=== PATIENT | female | born 1960 | race Two or more races ===

== ENCOUNTER → 2021-10-01 | Day surgery (SDC) | payer OTHER ==
[~2021-10-01] VITALS: Ht 162.6 cm; Wt 66.7 kg
[~2021-10-01] MED LIST: AMIO200T33 PO; APIX5TAB PO; EPINEPHrine HCL 1 MG/1 ML AMP ONE; HYDROmorphone HCL 2 MG/ML VL IV PRN; HYDROmorphone HCL 2 MG/ML VL ONE; MAGN400T40 OR; MIDAZOLAM HCL 2MG/2ML 2ml VIAL (1mg/ml) ONE; POTA99TA5 PO; PROPOFOL 10 MG/ML 20 ML IV ONE; ROCURONIUM 10MG/ML 10ML VIAL IV ONE; ROPIVACAINE 0.5% (5MG/ML) 20ML AMPULE IJ ONE; ceFAZolin 1GM/50ML 100 ML IV ONE; fentaNYL CITRATE 5 ML ONE
[2021-10-01 16:00] VITALS: BP 125/69
== END | disposition home or self-care (01) ==
LOC: SUR 07:58
PROVIDERS: ATTEND Orthopaedic Surgery
DX: M75.101 Unspecified rotator cuff tear or rupture of right shoulder, not specified as traumatic (principal); M25.811 Other specified joint disorders, right shoulder; M65.811 Other synovitis and tenosynovitis, right shoulder; I20.9 Angina pectoris, unspecified; Z98.890 Other specified postprocedural states; Z79.899 Other long term (current) drug therapy; Z20.822 Contact with and (suspected) exposure to COVID-19
CPT/HCPCS: 29826; 29827; C1713; J0171; J0690; J1170; J2250; J2704; J2795; J3010; U0003; A4565

== ENCOUNTER 2025-03-04 15:44 | Inpatient (IN) | payer OTHER ==
[~2025-03-04] VITALS: Ht 162.6 cm; Wt 62.7 kg
[~2025-03-04 15:44] MED LIST changes: -EPINEPHrine HCL 1 MG/1 ML AMP ONE; -HYDROmorphone HCL 2 MG/ML VL IV PRN; -HYDROmorphone HCL 2 MG/ML VL ONE; -MIDAZOLAM HCL 2MG/2ML 2ml VIAL (1mg/ml) ONE; -PROPOFOL 10 MG/ML 20 ML IV ONE; -ROCURONIUM 10MG/ML 10ML VIAL IV ONE; -ROPIVACAINE 0.5% (5MG/ML) 20ML AMPULE IJ ONE; -ceFAZolin 1GM/50ML 100 ML IV ONE; -fentaNYL CITRATE 5 ML ONE
--- NOTE | 2025-03-04 16:04 | ECG ---
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
--- NOTE | 2025-03-04 16:11 | ED.PDOC ---
History of Present Illness HPI Comments 64 y/o F, with PMHx of urolithiasis presents to the ED for CC of generalized weakness with intermittent burning discomfort from the upper mid chest up to the throat. Patient states, that she has been experiencing symptoms of weakness, numbness, and malaise [id number]. Patient relays, that she was seen at [facility] on 02/21/25 for symptoms and is supposed to followed up for biopsy on the March for neoplasm. No other associated symptoms, modifiers, recent injuries or sick contacts present at this time. Chief Complaint: General Weakness Time Seen by MD: 16:50 Reviewed Notes: Nurses Notes, Medications, Allergies Allergies: Coded Allergies: NO KNOWN ALLERGIES (Unverified , 09/27/21) Home Meds Reported Medications Magnesium Oxide (MAGNESIUM OXIDE) 400 Mg Tab, 400 MG OR, TAB 09/27/21 Potassium Gluconate (Potassium) 595 Mg Tab, 595 MG PO, TAB 09/27/21 Amiodarone Hcl (Amiodarone Hcl) 200 Mg Tab, 200 MG PO BID, TAB 09/27/21 Apixaban Base (ELIQUIS) 5 Mg Tab, 5 MG PO BID, TAB 09/27/21 Information Source: Patient Mode of Arrival: Ambulatory Severity: Moderate Timing: Days Duration: Since onset Prehospital treatment: None Past Medical History PAST MEDICAL HISTORY: Kidney Stones Surgical History (Other): 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 Family History Family History: Unknown Social History Smoker: Non-Smoker Alcohol: Denies ETOH Use Drugs: Denies Drug Use Lives In: Home Constitutional: reports: fatigue, malaise, weakness; denies: chills, diaphoresis, fever, sweats, others EENTM: denies: blurred vision, double vision, ear bleeding, ear discharge, ear drainage, ear pain, ear ringing, eye pain, eye redness, hearing loss, mouth pain, mouth swelling, nasal discharge, nose bleeding, nose congestion, nose pain, photophobia, tearing, throat pain, throat swelling, voice changes, others Respiratory: denies: cough, hemoptysis, orthopnea, SOB at rest, shortness of breath, SOB with excertion, stridor, wheezing, others Cardiovascular: denies: chest pain, dizzy spells, diaphoresis, Dyspnea on exertion, edema, irregular heart beat, left arm pain, lightheadedness, palpitations, PND, syncope, others Gastrointestinal: denies: abdomen distended, abdominal pain, blood streaked bowels, constipated, diarrhea, dysphagia, difficulty swallowing, hematemesis, melena, nausea, poor appetite, poor fluid intake, rectal bleeding, rectal pain, vomiting, others Genitourinary: denies: abnormal vagina bleeding, burning, dyspareunia, dysuria, flank pain, frequency, hematuria, incontinence, pain, , vagina discharge, urgency, others Neurological: reports: numbness; denies: dizziness, fainting, headache, left sided numbness, left sided weakness, paresthesia, pre-existing deficit, right sided numbness, right sided weakness, seizure, speech problems, tingling, tremors, weakness, others Musculoskeletal: denies: back pain, gout, joint pain, joint swelling, muscle pain, muscle stiffness, neck pain, others Integumetry: denies: bruises, change in color, change in hair/nails, dryness, laceration, lesions, lumps, rash, wounds, others Allergic/Immunocompromised: denies: Difficulty Healing, Frequent Infections, Hives, Itching, others Hematologic/Lymphatic: denies: anemia, blood clots, easy bleeding, easy bruising, swollen glands, others Endocrine: denies: excessive hunger, excessive sweating, excessive thirst, excessive urination, flushing, intolerance to cold, intolerance to heat, un explained weight gain, unexplained weight loss, others Psychiatric: denies: anxiety, bipolar disorder, depression, hopeless, panic disorder, schizophrenia, sleepless, suicidal, others All Other Systems: Reviewed and Negative Physical Exam General Appearance: No Apparent Distress, Normal HEENT: Normal ENT Inspection, Pharynx Normal, TMs Normal Neck: Full Range of Motion, Non-Tender, Normal, Normal Inspection Respiratory: Chest Non-Tender, Lungs Clear, No Accessory Muscle Use, No Respiratory Distress, Normal Breath Sounds Cardiovascular: No Edema, No JVD, No Murmur, No Gallop, Normal Peripheral Pu lses, Regular Rate/Rhythm Breast Exam: Deferred Gastrointestinal: No Organomegaly, Non Tender, No Pulsatile Mass, Normal Bowel Sounds, Soft Genitalia: Deferred Pelvic: Deferred Rectal: Deferred Extremities: No calf tenderness, Normal capillary refill, Normal inspection, Normal range of motion, Non-tender, No pedal edema Musculoskeletal : Apperance: Normal Neurologic: Alert, 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 Was a procedure done?: No Differential Dx Considerations may include: hypercalcemia, dehydration, hypoglycemia, failure to thrive, malignancy, acs X-Ray, Labs, Meds, VS Vital Signs Date Time Temp Pulse Resp B/P (MAP) Pulse Ox O2 Delivery O2 Flow Rate FiO2 03/04/25 18:04 97.9 74 16 117/69 (85) 97 97.9 03/04/25 18:04 74 16 97 Room Air 03/04/25 16:02 66 03/04/25 15:55 97.4 73 16 137/83 (101) 94 97.4 Lab Test 03/04/25 18:28 03/04/25 16:17 03/04/25 15:54 Range/Units Urine Color Colorless Yellow Urine Clarity Clear Clear Urine pH 5.5 5.0-9.0 Urine Specific [place] 1.007 1.001-1.035 Urine Protein Negative Negative Urine Ketones Negative Negative Urine Blood Negative Negative /uL Urine Nitrite Negative Negative Urine Bilirubin Negative Negative Urine Urobilinogen Normal Negative mg/dL Urine Leukocyte Esterase 1+ Negative /uL Urine RBC 1 0 - 4 /hpf Urine Microscopic WBC 4 0-5 /HPF Urine Squamous Epithelial Cells None seen <5 /hpf Urine Bacteria None seen None Seen /hpf Urine Glucose Normal Normal mg/dL White Blood Count 5.3 4.4-10.8 10^3/uL Red Blood Count 4.72 4.0-5.20 10^6/uL Hemoglobin 14.6 12.2-16.2 g/dL Hematocrit 41.6 36.0-46.0 % Mean Corpuscular Volume 88.1 80.0-100.0 fL Mean Corpuscular Hemoglobin 30.9 28.0-32.0 pg Mean Corpuscular Hemoglobin Concent 35.0 32.0-36.0 g/dL Red Cell Distribution Width 12.8 11.8-14.3 % Platelet Count 167 140-450 10^3/uL Mean Platelet Volume 7.5 6.9-10.8 fL Neutrophils (%) (Auto) 68.6 37.0-80.0 % Lymphocytes (%) (Auto) 21.6 10.0-50.0 % Monocytes (%) (Auto) 3.9 0.0-12.0 % Eosinophils (%) (Auto) 5.9 0.0-7.0 % Basophils (%) (Auto) 0.0 0.0-2.0 % Neutrophils # (Auto) 3.6 1.6-8.6 10 ^3/uL Lymphocytes # (Auto) 1.1 0.4-5.4 10 ^3/uL Monocytes # (Auto) 0.2 0-1.3 10 ^3/uL Eosinophils # (Auto) 0.3 0-0.8 10 ^3/uL Basophils # (Auto) 0 0-0.2 10 ^3/uL Nucleated Red Blood Cells 0.1 % Sodium Level 140 136-145 mmol/L Potassium Level 4.1 3.5-5.1 mmol/L Chloride Level 102 98-107 mmol/L Carbon Dioxide Level 26 20-31 mmol/L Anion Gap 12 5-15 Blood Urea Nitrogen 17 9-23 mg/dL Creatinine 0.98 0.550-1.02 mg/dL Glomerular Filtration Rate Calc 65 >90 mL/min BUN/Creatinine Ratio 17.3 10.0-20.0 Serum Glucose 106 74-106 mg/dL Calcium Level 10.3 8.7-10.4 mg/dL Magnesium Level 2.3 1.6-2.6 mg/dL Total Bilirubin 0.7 0.2-1.0 mg/dL Aspartate Amino Transferase (AST) 18 13-40 U/L Alanine Aminotransferase (ALT) 20 7-40 U/L Alkaline Phosphatase 67 46-116 U/L Troponin I High Sensitivity 91 *H </=34 ng/L Total Protein 7.4 5.7-8.2 g/dL Albumin 4.9 H 3.2-4.8 g/dL POC Glucose 105 70-106 mg/dl Current Medications Medications (Trade) Dose Ordered Sig/Silvia Route Start Time Stop Time Status Last Admin Aspirin 325 mg ONCE ONCE PO 03/04/25 17:30 03/04/25 17:31 DC 03/04/25 18:[address] [address] Ph: [phone] DIAGNOSTIC IMAGING Diagnostic Imaging Report : [id number] Signed PATIENT: MADDY BEDOYAACCT: [id number] UNIT: [id number] : 1960 LOC: ER ROOM / BED: / AGE / SEX: 64 / F ADM STATUS: REG ER SERVICE 1559 ORDERING PHYSICIAN: BEN DONG MD PROCEDURE(s): CXRP - CHEST PORTABLE REASON: weakness ORDER NUMBER(s): [id number], ACCESSION NUMBER(s): [id number] CHEST RADIOGRAPH Indication: weakness Technique: Single frontal view of the chest was obtained Comparison: None FINDINGS: Left chest dual lead cardiac pacing device The cardiac silhouette is unremarkable. The lungs demonstrate right basilar airspace opacities. The pulmonary vasculature is unremarkable. There is no pleural effusion.. There is no pneumothorax. IMPRESSION: 1. Right basilar airspace opacification. << >> ATED BY: MITRA DE LEON MD DICTATED DATE/TIME: 03/04/251636 SIGNED BY: MITRA DE LEON MD SIGNED DATE/TIME: 03/04/251636 CC: Time of 1ST Reevaluation: 17:20 Reevaluation 1ST: Unchanged Time of 2ND Reevaluation: 18:29 Reevaluation 2ND: Unchanged Patient Education/Counseling: Diagnosis, Treatment, Prognosis, Need For Follow Up Family Education/Counseling: No Family Present Comments The following charts were reviewed from patient's prior visits: 09/21/21 Dx: Sx rotater cuff The following tests were ordered, and results were reviewed by me: CBC, CMP, MAGNESIUM, TROPONIN, EKG, CXR I reviewed and agreed with the following test results read by other providers: CXR I discussed treatment and results with medical personnel and: Patient, Dr Pavon Comprehensive systems review obtained and negative except for what is stated in the HPI. pt has a lung lesion which she is waiting for biopsy next month. in the meantime, pt is progressively feeling weaker. the workup today shows elevated trop. pt may have had a cardiac event. she will be admitted. she may also have the lung lesion assessed while she is here Departure 1 Departure Time of Disposition: 18:31 Impression: Primary Impression: Elevated troponin Additional Impressions: Lesion of lung Unstable angina Disposition: ADMITTED INPATIENT Admit to: Tele Condition: Stable Discharged With: Self Critical Care Note Critical Care Time?: Yes (55 min-critical care time only) Critical care comment: Due to concerns for patients condition deteriorating, the care required my highest level of attention and readiness to intervene. I assessed the patient, reviewed the medical records, ordered the appropriate tests and treatments, then reassessed for results and responsiveness. I communicated with medical personnel and consultants and formulated a plan of care. Total critical care time excludes any procedures Stability Stability form required: No Heart Score Heart Score: Heart Score Response (Comments) Value History N/A 0 EKG N/A 0 Age N/A 0 Risk Factors N/A 0 Troponin N/A 0 Total 0 I personally scribed for BEN DONG MD ([email or web address]) on 03/04/25 at 16:11. Electronically submitted by Florida Meier ([email or web address]). I personally scribed for BEN DONG MD ([email or web address]) on 03/04/25 at 17:13. Electronically submitted by Florida Meier ([email or web address]). BEN DONG MD Mar 04, 2025 16:11
[2025-03-04 16:39] LABS: Basophils # (auto) 0 10 ^3/uL (0-0.2); Eosinophils # (auto) 0.3 10 ^3/uL (0-0.8); Eosinophils % (auto) 5.9 % (0.0-7.0); Hematocrit 41.6 % (36.0-46.0); Hemoglobin 14.6 g/dL (12.2-16.2); Lymphocytes # (auto) 1.1 10 ^3/uL (0.4-5.4); Lymphocytes % (auto) 21.6 % (10.0-50.0); Mean Corpuscular Hemoglobin 30.9 pg (28.0-32.0); Mean Corpuscular Volume 88.1 fL (80.0-100.0); Monocytes # (auto) 0.2 10 ^3/uL (0-1.3); Monocytes % (auto) 3.9 % (0.0-12.0); Neutrophils # (auto) 3.6 10 ^3/uL (1.6-8.6); Neutrophils % (auto) 68.6 % (37.0-80.0); Nucleated Red Blood Cells % 0.1 %; Platelet Count (auto) 167 10^3/uL (140-450); Red Blood Cells 4.72 10^6/uL (4.0-5.20); Red Cell Distribution Width 12.8 % (11.8-14.3); White Blood Cell 5.3 10^3/uL (4.4-10.8)
--- NOTE | 2025-03-04 16:40 | DVH ---
CHEST RADIOGRAPH Indication: weakness Technique: Single frontal view of the chest was obtained Comparison: None FINDINGS: Left chest dual lead cardiac pacing device The cardiac silhouette is unremarkable. The lungs demonstrate right basilar airspace opacities. The p ulmonary vasculature is unremarkable. There is no pleural effusion.. There is no pneumothorax. IMPRESSION: 1. Right basilar airspace opacification. << >>
[2025-03-04 16:58] LABS: Alanine Aminotransferase 20 U/L (7-40); Alkaline Phosphatase 67 U/L (46-116); Anion Gap 12 (5-15); Aspartate Aminotransferase 18 U/L (13-40); BUN/Creatinine Ratio 17.3 (10.0-20.0); Bilirubin, Total 0.7 mg/dL (0.2-1.0); Blood Urea Nitrogen 17 mg/dL (9-23); Calcium 10.3 mg/dL (8.7-10.4); Carbon Dioxide 26 mmol/L (20-31); Chloride 102 mmol/L (98-107); Glucose 106 mg/dL (74-106); Magnesium 2.3 mg/dL (1.6-2.6); Potassium 4.1 mmol/L (3.5-5.1); Sodium 140 mmol/L (136-145); Total Protein 7.4 g/dL (5.7-8.2)
[2025-03-04 17:05] LABS: Albumin 4.9 g/dL (3.2-4.8)
[2025-03-04] MEDS: ASPirin 325 MG TAB PO ONE (18:07)
[2025-03-04 18:42] LABS: Urine Bacteria None Seen /hpf (None Seen)
[2025-03-04 18:56] LABS: Urine Blood Negative /uL (Negative); Urine Clarity Clear (Clear); Urine Color Colorless (Yellow); Urine Protein, UAD Negative (Negative); Urine Specific Gravity 1.007 (1.001-1.035); Urine Squamous Epithelial Cell None Seen /hpf (<5); Urine Urobilinogen Normal (Negative); Urine WBC 4 /HPF (0-5); Urine pH 5.5 (5.0-9.0)
[2025-03-04] MEDS ORDERED: NITROGLYCERIN 0.4 MG SL TAB SL PRN (21:45)
[2025-03-04] MEDS ORDERED: MORPHINE SULFATE INJ 2 MG/ml SYRG IV PRN (21:45)
[2025-03-04] MEDS: ENOXAPARIN SOD 60 MG/0.6 ML SYRINGE SC SCH (21:56)
[2025-03-04 22:01] VITALS: PULSE 61; RESP 18; O2SAT 98
[2025-03-04] MEDS: SOD CHL 0.45% 1,000 ML IV ONE (22:17)
[2025-03-04 22:41] LABS: INR 1.02 (0.9-1.15); Prothrombin Time 10.8 sec (9.3-11.8)
[2025-03-05] VITALS (7 sets, daily range): BP systolic 104–115; BP diastolic 56–68; PULSE 60–96; RESP 16–20; TEMP 97.3–98.3; O2SAT 97–99
[2025-03-05 07:48] LABS: Basophils # (auto) 0 10 ^3/uL (0-0.2); Basophils % (auto) 0.6 % (0.0-2.0); Eosinophils # (auto) 0.1 10 ^3/uL (0-0.8); Eosinophils % (auto) 1.4 % (0.0-7.0); Hematocrit 40.3 % (36.0-46.0); Hemoglobin 14.1 g/dL (12.2-16.2); Lymphocytes % (auto) 42.3 % (10.0-50.0); Mean Corpuscular Hemoglobin 30.7 pg (28.0-32.0); Mean Corpuscular Hgb Conc. 34.9 g/dL (32.0-36.0); Mean Corpuscular Volume 88.1 fL (80.0-100.0); Monocytes # (auto) 0.3 10 ^3/uL (0-1.3); Neutrophils # (auto) 2.4 10 ^3/uL (1.6-8.6); Neutrophils % (auto) 49.7 % (37.0-80.0); Nucleated Red Blood Cells % 0.1 %; Platelet Count (auto) 149 10^3/uL (140-450); Red Blood Cells 4.58 10^6/uL (4.0-5.20); Red Cell Distribution Width 12.8 % (11.8-14.3); White Blood Cell 4.8 10^3/uL (4.4-10.8)
[2025-03-05 08:06] LABS: Alanine Aminotransferase 14 U/L (7-40); Albumin 4.5 g/dL (3.2-4.8); Alkaline Phosphatase 60 U/L (46-116); Anion Gap 8 (5-15); Aspartate Aminotransferase 17 U/L (13-40); BUN/Creatinine Ratio 21.4 (10.0-20.0); Blood Urea Nitrogen 18 mg/dL (9-23); Calcium 9.6 mg/dL (8.7-10.4); Carbon Dioxide 24 mmol/L (20-31); Chloride 106 mmol/L (98-107); Glucose 90 mg/dL (74-106); Sodium 138 mmol/L (136-145)
[2025-03-05 08:07] LABS: Bilirubin, Total 0.9 mg/dL (0.2-1.0)
[2025-03-05] MEDS ORDERED: IOHEXOL 350 MG/ML 100ML IJ ONE (12:26)
--- NOTE | 2025-03-05 12:32 | DVHINCON2 ---
Date Seen: Mar 05, [address] Dainelle Reason for Consultation Elevated troponin History of Present Illness This 64-year-old female mainly Lithuanian-speaking presents in the ED with a chief complaint of generalized weakness. In the emergency department, the patient is found to have mild troponins 91/98/94 for which licensed sales assistant consulted. The patient underwent a 12 lead ECG revealing AV paced. Upon assessment, the patient states generalized weakness associated with intermittent mid chest and through discomfort and malaise for the past three weeks. The patient reports history of AFib on amiodarone and Eliquis, status post permanent pacemaker with a dual-chamber. She had seen her licensed sales assistant Dr. Chakraborty two months ago for regular checkup. Denies history of OR or CAD. 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 Past Medical History As stated in HPI Past Surgical History Denies Family History: Patient reports no known family medical history. Family History Reviewed, non-contributory to the management of this case. Social History The patient lives at home, denies smoking, alcohol or illicit drugs abuse. Allergies: Coded Allergies: NO KNOWN ALLERGIES (Unverified , 09/27/21) Home Meds Reported Medications Magnesium Oxide (MAGNESIUM OXIDE) 400 Mg Tab, 400 MG OR, TAB 09/27/21 Apixaban Base (ELIQUIS) 5 Mg Tab, 5 MG PO BID, TAB 09/27/21 Current Medications Current Medications Medications (Trade) Dose Ordered Sig/Silvia Route PRN Reason Start Time Stop Time Status Last Admin Nitroglycerin (Ntrostat Sublingual) 0.4 mg Q5MINP PRN SL FOR CHEST PAIN 03/04/25 21:45 Morphine Sulfate 2 mg Q30M PRN IV FOR CHEST PAIN 03/04/25 21:45 Enoxaparin Sodium (Lovenox) 60 mg BID SC 03/04/25 22:00 03/04/25 21:56 Review of Systems Constitutional: Malaise, generalized weakness Ears, Nose, & Throat: No symptom reported Eyes: No symptom reported Neurological: No symptoms reported Pulmonary/Respiratory: No symptom reported Cardiovascular: No symptom reported Gastrointestinal: No symptom reported Genitourinary: No symptom reported Musculoskeletal: No symptom reported Skin: No symptom reported Psychiatric: No symptom reported Endocrine: No symptom reported Hematologic/Lymphatic: No symptom reported Vital Signs Vital Signs Date Time Temp Pulse Resp B/P (MAP) Pulse Ox O2 Delivery O2 Flow Rate FiO2 03/05/25 05:00 97.6 61 20 107/68 (81) 97 97.6 03/04/25 22:01 Room Air* 0 21 Physical Exam INITIAL VITAL SIGNS: Reviewed by me GENERAL: Alert and interactive. No acute distress. HEAD: Head is normocephalic and atraumatic. EYES: EOMI, PERRL. No scleral icterus. No conjunctival injection. ENT: Moist mucous membranes. NECK: Supple, No masses, Full range of motion. RESPIRATORY: No tachypnea. Clear breath sounds bilaterally. No wheezing, rales, rhonchi. CV: AV paced. No dyspnea, no shortness of breath, no edema GI/: Active bowel sounds, soft, nondistended, nontender. No guarding. No rebound. No masses. No CVA tenderness. INTEGUMENTARY: Warm and dry. No obvious rashes. NEUROLOGIC: Alert and oriented. Face is symmetric. Speech is normal. Moves all extremities equally. Labs/Diagnostic Data Labs Test 03/05/25 07:32 03/04/25 21:57 03/04/25 18:28 03/04/25 16:17 Range/Units White Blood Count 4.8 4.4-10.8 10^3/uL Red Blood Count 4.58 4.0-5.20 10^6/uL Hemoglobin 14.1 12.2-16.2 g/dL Hematocrit 40.3 36.0-46.0 % Mean Corpuscular Volume 88.1 80.0-100.0 fL Mean Corpuscular Hemoglobin 30.7 28.0-32.0 pg Mean Corpuscular Hemoglobin Concent 34.9 32.0-36.0 g/dL Red Cell Distribution Width 12.8 11.8-14.3 % Platelet Count 149 140-450 10^3/uL Mean Platelet Volume 7.6 6.9-10.8 fL Neutrophils (%) (Auto) 49.7 37.0-80.0 % Lymphocytes (%) (Auto) 42.3 10.0-50.0 % Monocytes (%) (Auto) 6.0 0.0-12.0 % Eosinophils (%) (Auto) 1.4 0.0-7.0 % Basophils (%) (Auto) 0.6 0.0-2.0 % Neutrophils # (Auto) 2.4 1.6-8.6 10 ^3/uL Lymphocytes # (Auto) 2.0 0.4-5.4 10 ^3/uL Monocytes # (Auto) 0.3 0-1.3 10 ^3/uL Eosinophils # (Auto) 0.1 0-0.8 10 ^3/uL Basophils # (Auto) 0 0-0.2 10 ^3/uL Nucleated Red Blood Cells 0.1 % Sodium Level 138 136-145 mmol/L Potassium Level 4.0 3.5-5.1 mmol/L Chloride Level 106 98-107 mmol/L Carbon Dioxide Level 24 20-31 mmol/L Anion Gap 8 5-15 Blood Urea Nitrogen 18 9-23 mg/dL Creatinine 0.84 0.550-1.02 mg/dL Glomerular Filtration Rate Calc 79 >90 mL/min BUN/Creatinine Ratio 21.4 H 10.0-20.0 Serum Glucose 90 74-106 mg/dL Calcium Level 9.6 8.7-10.4 mg/dL Total Bilirubin 0.9 0.2-1.0 mg/dL Aspartate Amino Transferase (AST) 17 13-40 U/L Alanine Aminotransferase (ALT) 14 7-40 U/L Alkaline Phosphatase 60 46-116 U/L Troponin I High Sensitivity 94 *H </=34 ng/L Total Protein 7.0 5.7-8.2 g/dL Albumin 4.5 3.2-4.8 g/dL Prothrombin Time 10.8 9.3-11.8 sec Prothrombin Time INR 1.02 0.9-1.15 Urine Color Colorless Yellow Urine Clarity Clear Clear Urine pH 5.5 5.0-9.0 Urine Specific [place] 1.007 1.001-1.035 Urine Protein Negative Negative Urine Ketones Negative Negative Urine Blood Negative Negative /uL Urine Nitrite Negative Negative Urine Bilirubin Negative Negative Urine Urobilinogen Normal Negative mg/dL Urine Leukocyte Esterase 1+ Negative /uL Urine RBC 1 0 - 4 /hpf Urine Microscopic WBC 4 0-5 /HPF Urine Squamous Epithelial Cells None seen <5 /hpf Urine Bacteria None seen None Seen /hpf Urine Glucose Normal Normal mg/dL Magnesium Level 2.3 1.6-2.6 mg/dL Test 03/04/25 15:54 Range/Units POC Glucose 105 70-106 mg/dl PROCEDURE(s): CXRP - CHEST PORTABLE REASON: weakness ORDER NUMBER(s): [id number], ACCESSION NUMBER(s): [id number] CHEST RADIOGRAPH Indication: weakness Technique: Single frontal view of the chest was obtained Comparison: None FINDINGS: Left chest dual lead cardiac pacing device The cardiac silhouette is unremarkable. The lungs demonstrate right basilar airspace opacities. The pulmonary vasculature is unremarkable. There is no pleural effusion.. There is no pneumothorax. IMPRESSION: 1. Right basilar airspace opacification. << >> Assessment NSTEMI likely noncardiac Hx of AFib on amiodarone and Eliquis Presence of permanent pacemaker Generalized weakness Lung nodule pending biopsy Plan/Recommendation (Dr. Maciel): * Echocardiogram to evaluate cardiac function * Trend troponin, monitor 12 lead ECG and telemetry * Pacemaker interrogation * Check lipid panel, TSH and A1c * Monitor for chest pain Elevated troponin likely noncardiac given unremarkable EKG, downtrending troponin, denies chest pain or shortness of breath. Likely 2/2 ? Lung nodule?neoplasm. In the setting of unremarkable echocardiogram and and pacemaker interrogation, we will sign off. Follow-up with the Cardiology Dr. Chakraborty in outpatient setting This medical document was created using an electronic medical record system with voice recognition software and computerized dictation system. Although this document has been carefully reviewed, there might still be some phonetic and typographical errors. Occasional wrong-word or ``sound-alike substitutions may have occurred due to the inherent limitations of voice recognition software. These areas are purely typographical due to imperfections of the software programs and do not reflect any compromise in the patient's medical care. Please read the chart carefully and recognize, using context, where these substitutions have occurred. Plan discussed with: Patient Plan discussed with: Patient NYHA Physical activity limitations: NA Date of Service: Mar 05, 2025 Billing Provider: GRIS MACIEL MD Cardiology Common Codes: CONSULT ONLY Cardiology Consultation Codes: 96988-[id number] CONSULT <45MIN LIZET TARIQ BOOK CLEANER Mar 05, 2025 12:32
[2025-03-05 12:44] LABS: Triglycerides 95 mg/dL (< 150)
[2025-03-05 12:45] LABS: LDL Cholesterol 135 mg/dL (< 100)
[2025-03-05 12:46] LABS: Cholesterol 217 mg/dL (< 200); HDL Cholesterol 63 mg/dL (40-59)
--- NOTE | 2025-03-05 13:49 | DVHSR ---
APPROVED REPORT EXAM: Two-dimensional and M-mode echocardiogram with Doppler and color Doppler. Blood Pressure: 107/68 mmHg INDICATION NSTEMI Surgery/Intervention Pacemaker: RISK FACTORS Height: 64, Weight: 137 DIMENSIONS LVDd4.5 (3.8-5.7cm)LA (2D)3.6 (1.9-4.0cm)Aortic Root2.8 (2.0-3.7cm) LVDs2.7 (2.5-4.0cm)LA (MM) (1.9-4.0cm)Aortic Cusp Exc1.6 (1.5-2.0cm) EF (%) 69.0 (55-70%)Rt. Atrium3.3 (1.9-4.0cm)Asc. Aorta cm IVSd0.8 (0.7-1.1cm)RV (D) (1.8-2.4cm) PWd1.0 (0.7-1.1cm) Mitral Valve MitralMitral Stenosis E wave0.80m/sMV Mean GR.mmHg A wave0.86m/sMV Peak GR.mmHg E/A ratio0.92D MVAcm2 DECEL [id number] 1/2 [id number] IVRTmsDop MVA2.69cm2 Aortic Valve Aortic ValveAortic Stenosis V11.03m/Shelly Mean GR.6mmHg V21.61m/Shelly Peak GR.10mmHg LVOT Diameter1.9 (1.8-2.4cm)Doppler AVA1.81cm2 AI P 1/2 Aakn915.40ms Pulmonic Valve V20.87m/s Tricuspid Valve TR Velocity2.43m/s [id number] Conclusion LV EF IS 65% NORMAL VALVES NORMAL RV FUNCTION AND SIZE NO EFFUSION NORMAL RVSP
--- NOTE | 2025-03-05 15:22 | DVH ---
Exam: CT CT CHEST/AB/PL W CON- IV ONLY History: Reported lung mass, pending Bx, also review for mets Comparison Study: None available at time of dictation. Technique: Multidetector CT of the chest, abdomen and pelvis was performed from lower neck to pubic s ymphysis. Intravenous contrast was administered during this examination. Axial, coronal and sagittal multiplanar reformats were performed by the technologist on a separate workstation. Radiation Dose Information: CT Dose: CTDI volume is 11.51 mGy. Dose-length product is 804.26 mGy*cm Omnipaque 300:1 100 mL Findings: Lower neck: Normal thyroid no adenopathy Lungs: 2.1 cm spiculated soft tissue nodule left upper lung field. Heart/Vascular Structures: Within normal limits Lymph Nodes: No adenopathy Pleura: No pleural thickening or pleural effusions Liver: The liver is normal in size. No focal lesions. Normal hepatic vascular enhancement. Hepatic s teatosis. No masses or nodules. Gallbladder and Biliary Tree: Cholelithiasis Spleen: Unremarkable Pancreas: The pancreas is normal in appearance without focal lesions or abnormal enhancement. Adrenal Glands: Unremarkable Kidneys: Kidneys demonstrate normal symmetric enhancement without focal lesions, calculi or hydroneph rosis. Bladder: Unremarkable Bowel: The stomach is grossly normal in appearance. Small bowel and colon are normal in caliber and d istribution. The appendix is not visualized; however, no secondary findings of acute appendicitis id entified. Ascites: Absent Lymphadenopathy: No mesenteric, retroperitoneal or periportal lymphadenopathy. Abdominal Wall and Mesentery: Unremarkable. Vasculature: The visualized abdominal aorta is normal in size and caliber. Abdominal and pelvic vess els demonstrate normal enhancement. Pelvic Organs: Unremarkable Musculoskeletal: No aggressive focal bony lesions, acute fractures or dislocation. IMPRESSION: 1. 2.1 cm solid soft tissue nodule left apex. 2. No other pulmonary nodules or masses 3. Steatosis of the liver no hepatic nodules or masses 4. No osseous lytic or blastic lesions. All CT scans at this medical facility are performed using dose modulation techniques as appropriate t o a performed exam including the following: Automated exposure control was utilized; adjustment of th e MA and/or KV according to patient size; and use of iterative reconstruction technique.
--- NOTE | 2025-03-05 21:02 | DVHINCON2 ---
Date Seen: Mar 05, [address] 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 In the emergency department, the patient is found to have mild troponins 91/98/94 for which ship pilot dispatcher consulted. The patient underwent a 12 lead ECG revealing AV paced. Upon assessment, the patient states generalized weakness associated with intermittent mid chest and through discomfort and malaise for the past three weeks. She had seen her ship pilot dispatcher Dr. Chakraborty two months ago for regular checkup. Denies history of NH or CAD. Chest x-ray shows right basilar airspace opacification. Patient was admitted to the hospital. I am asked to consult on this patient. Family History: Patient reports no known family medical history. Allergies: Coded Allergies: NO KNOWN ALLERGIES (Unverified , 09/27/21) Home Meds Reported Medications Magnesium Oxide (MAGNESIUM OXIDE) 400 Mg Tab, 400 MG OR, TAB 09/27/21 Apixaban Base (ELIQUIS) 5 Mg Tab, 5 MG PO BID, TAB 09/27/21 Current Medications Current Medications Medications (Trade) Dose Ordered Sig/Silvia Route PRN Reason Start Time Stop Time Status Last Admin Nitroglycerin (Ntrostat Sublingual) 0.4 mg Q5MINP PRN SL FOR CHEST PAIN 03/04/25 21:45 Morphine Sulfate 2 mg Q30M PRN IV FOR CHEST PAIN 03/04/25 21:45 Enoxaparin Sodium (Lovenox) 60 mg BID SC 03/04/25 22:00 03/04/25 21:56 Review of Systems Constitutional: Malaise, generalized weakness Ears, Nose, & Throat: No symptom reported Eyes: No symptom reported Neurological: No symptoms reported Pulmonary/Respiratory: No symptom reported Cardiovascular: No symptom reported Gastrointestinal: No symptom reported Genitourinary: No symptom reported Musculoskeletal: No symptom reported Skin: No symptom reported Psychiatric: No symptom reported Endocrine: No symptom reported Hematologic/Lymphatic: No symptom reported Vital Signs Vital Signs Date Time Temp Pulse Resp B/P (MAP) Pulse Ox O2 Delivery O2 Flow Rate FiO2 03/05/25 05:00 97.6 61 20 107/68 (81) 97 97.6 03/04/25 22:01 Room Air* 0 21 Physical Exam GENERAL: Alert and oriented x 3. No acute distress. EYES: PERRL, EOMI. Anicteric. HENT: Moist mucous membranes. LUNGS: Clear to auscultation bilaterally. CARDIOVASCULAR: Regular rate and rhythm. ABDOMEN: Soft, nontender and nondistended. EXTREMITIES: No edema. NEUROLOGIC: No focal neurological deficits. SKIN: Warm, dry. Labs/Diagnostic Data Labs Test 03/05/25 07:32 03/04/25 21:57 03/04/25 18:28 03/04/25 16:17 Range/Units White Blood Count 4.8 4.4-10.8 10^3/uL Red Blood Count 4.58 4.0-5.20 10^6/uL Hemoglobin 14.1 12.2-16.2 g/dL Hematocrit 40.3 36.0-46.0 % Mean Corpuscular Volume 88.1 80.0-100.0 fL Mean Corpuscular Hemoglobin 30.7 28.0-32.0 pg Mean Corpuscular Hemoglobin Concent 34.9 32.0-36.0 g/dL Red Cell Distribution Width 12.8 11.8-14.3 % Platelet Count 149 140-450 10^3/uL Mean Platelet Volume 7.6 6.9-10.8 fL Neutrophils (%) (Auto) 49.7 37.0-80.0 % Lymphocytes (%) (Auto) 42.3 10.0-50.0 % Monocytes (%) (Auto) 6.0 0.0-12.0 % Eosinophils (%) (Auto) 1.4 0.0-7.0 % Basophils (%) (Auto) 0.6 0.0-2.0 % Neutrophils # (Auto) 2.4 1.6-8.6 10 ^3/uL Lymphocytes # (Auto) 2.0 0.4-5.4 10 ^3/uL Monocytes # (Auto) 0.3 0-1.3 10 ^3/uL Eosinophils # (Auto) 0.1 0-0.8 10 ^3/uL Basophils # (Auto) 0 0-0.2 10 ^3/uL Nucleated Red Blood Cells 0.1 % Sodium Level 138 136-145 mmol/L Potassium Level 4.0 3.5-5.1 mmol/L Chloride Level 106 98-107 mmol/L Carbon Dioxide Level 24 20-31 mmol/L Anion Gap 8 5-15 Blood Urea Nitrogen 18 9-23 mg/dL Creatinine 0.84 0.550-1.02 mg/dL Glomerular Filtration Rate Calc 79 >90 mL/min BUN/Creatinine Ratio 21.4 H 10.0-20.0 Serum Glucose 90 74-106 mg/dL Hemoglobin A1c 5.0 <5.7 % A1C Calcium Level 9.6 8.7-10.4 mg/dL Total Bilirubin 0.9 0.2-1.0 mg/dL Aspartate Amino Transferase (AST) 17 13-40 U/L Alanine Aminotransferase (ALT) 14 7-40 U/L Alkaline Phosphatase 60 46-116 U/L Troponin I High Sensitivity 94 *H </=34 ng/L B-Type Natriuretic Peptide 40.63 0-100 pg/mL Total Protein 7.0 5.7-8.2 g/dL Albumin 4.5 3.2-4.8 g/dL Triglycerides Level 95 < 150 mg/dL Cholesterol Level 217 H < 200 mg/dL LDL Cholesterol 135 H < 100 mg/dL HDL Cholesterol 63 H 40-59 mg/dL Thyroid Stimulating Hormone (TSH) 1.62 0.55-4.78 uIU/mL Prothrombin Time 10.8 9.3-11.8 sec Prothrombin Time INR 1.02 0.9-1.15 Urine Color Colorless Yellow Urine Clarity Clear Clear Urine pH 5.5 5.0-9.0 Urine Specific [place] 1.007 1.001-1.035 Urine Protein Negative Negative Urine Ketones Negative Negative Urine Blood Negative Negative /uL Urine Nitrite Negative Negative Urine Bilirubin Negative Negative Urine Urobilinogen Normal Negative mg/dL Urine Leukocyte Esterase 1+ Negative /uL Urine RBC 1 0 - 4 /hpf Urine Microscopic WBC 4 0-5 /HPF Urine Squamous Epithelial Cells None seen <5 /hpf Urine Bacteria None seen None Seen /hpf Urine Glucose Normal Normal mg/dL Magnesium Level 2.3 1.6-2.6 mg/dL Test 03/04/25 15:54 Range/Units POC Glucose 105 70-106 mg/dl Assessment NSTEMI likely noncardiac. History of AFib on amiodarone and Eliquis. Presence of permanent pacemaker. Generalized weakness. Lung nodule pending biopsy. Plan/Recommendation I agree with your ongoing assessment and care of plan. Patient has been seen by Sussy Hua NP on my behalf, her and I discussed the plan with the patient. Echocardiogram to evaluate cardiac function.. Trend troponin, monitor 12 lead ECG and telemetry. Pacemaker interrogation. Check lipid panel, TSH and A1c. Monitor for chest pain. Elevated troponin likely noncardiac given unremarkable EKG, downtrending troponin, denies chest pain or shortness of breath. Likely 2/2 ? Lung nodule?neoplasm. Follow-up with the Cardiology Dr. Chakraborty in outpatient setting Additional plan as per the hospital course. Plan discussed with: Patient NYHA Physical activity limitations: NA Date of Service: Mar 05, 2025 Billing Provider: GRIS TERRY MD Cardiology Common Codes: 14306-LJFAAVR INP/OBS CARE (High) Cardiology Consultation Codes: 03439-[id number] CONSULT <45MIN GRIS TERRY MD Mar 05, 2025 14:03
--- NOTE | 2025-03-05 21:53 | DVHHP2 ---
Admitting Diagnosis: Elevated troponin History of Present Illness HPI 64 y.o. 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 Her troponin was elevated 91 and the second time 98. EKG has no acute changes. Home Meds Reported Medications Magnesium Oxide (MAGNESIUM OXIDE) 400 Mg Tab, 400 MG OR, TAB 09/27/21 Apixaban Base (ELIQUIS) 5 Mg Tab, 5 MG PO BID, TAB 09/27/21 Past Medical History Cardiac: Other (AICD) Patient Family History: Patient reports no known family medical history. Review of Systems Constitutional: Weakness Cardiovascular: Chest Pain H&P Exam Vital Signs Vital Signs Date Time Temp Pulse Resp B/P (MAP) Pulse Ox O2 Delivery O2 Flow Rate FiO2 03/05/25 19:49 98.1 60 18 108/56 (73) 99 98.1 03/04/25 22:01 Room Air* 0 21 General Appeara: Well developed Head Exam: Normal inspection Eye Exam: bilateral eye PERRL, bilateral eye EOMI Pulmonary/Respiratory: Crackles Cardiovascular/Chest: Regular rate Abdominal Exam: Normal bowel sounds Neuro/Mental St: Alert, Oriented Labs/Xrays Labs Test 03/05/25 07:32 03/04/25 21:57 03/04/25 18:28 03/04/25 16:17 Range/Units White Blood Count 4.8 4.4-10.8 10^3/uL Red Blood Count 4.58 4.0-5.20 10^6/uL Hemoglobin 14.1 12.2-16.2 g/dL Hematocrit 40.3 36.0-46.0 % Mean Corpuscular Volume 88.1 80.0-100.0 fL Mean Corpuscular Hemoglobin 30.7 28.0-32.0 pg Mean Corpuscular Hemoglobin Concent 34.9 32.0-36.0 g/dL Red Cell Distribution Width 12.8 11.8-14.3 % Platelet Count 149 140-450 10^3/uL Mean Platelet Volume 7.6 6.9-10.8 fL Neutrophils (%) (Auto) 49.7 37.0-80.0 % Lymphocytes (%) (Auto) 42.3 10.0-50.0 % Monocytes (%) (Auto) 6.0 0.0-12.0 % Eosinophils (%) (Auto) 1.4 0.0-7.0 % Basophils (%) (Auto) 0.6 0.0-2.0 % Neutrophils # (Auto) 2.4 1.6-8.6 10 ^3/uL Lymphocytes # (Auto) 2.0 0.4-5.4 10 ^3/uL Monocytes # (Auto) 0.3 0-1.3 10 ^3/uL Eosinophils # (Auto) 0.1 0-0.8 10 ^3/uL Basophils # (Auto) 0 0-0.2 10 ^3/uL Nucleated Red Blood Cells 0.1 % Sodium Level 138 136-145 mmol/L Potassium Level 4.0 3.5-5.1 mmol/L Chloride Level 106 98-107 mmol/L Carbon Dioxide Level 24 20-31 mmol/L Anion Gap 8 5-15 Blood Urea Nitrogen 18 9-23 mg/dL Creatinine 0.84 0.550-1.02 mg/dL Glomerular Filtration Rate Calc 79 >90 mL/min BUN/Creatinine Ratio 21.4 H 10.0-20.0 Serum Glucose 90 74-106 mg/dL Hemoglobin A1c 5.0 <5.7 % A1C Calcium Level 9.6 8.7-10.4 mg/dL Total Bilirubin 0.9 0.2-1.0 mg/dL Aspartate Amino Transferase (AST) 17 13-40 U/L Alanine Aminotransferase (ALT) 14 7-40 U/L Alkaline Phosphatase 60 46-116 U/L Troponin I High Sensitivity 94 *H </=34 ng/L B-Type Natriuretic Peptide 40.63 0-100 pg/mL Total Protein 7.0 5.7-8.2 g/dL Albumin 4.5 3.2-4.8 g/dL Triglycerides Level 95 < 150 mg/dL Cholesterol Level 217 H < 200 mg/dL LDL Cholesterol 135 H < 100 mg/dL HDL Cholesterol 63 H 40-59 mg/dL Thyroid Stimulating Hormone (TSH) 1.62 0.55-4.78 uIU/mL Prothrombin Time 10.8 9.3-11.8 sec Prothrombin Time INR 1.02 0.9-1.15 Urine Color Colorless Yellow Urine Clarity Clear Clear Urine pH 5.5 5.0-9.0 Urine Specific [place] 1.007 1.001-1.035 Urine Protein Negative Negative Urine Ketones Negative Negative Urine Blood Negative Negative /uL Urine Nitrite Negative Negative Urine Bilirubin Negative Negative Urine Urobilinogen Normal Negative mg/dL Urine Leukocyte Esterase 1+ Negative /uL Urine RBC 1 0 - 4 /hpf Urine Microscopic WBC 4 0-5 /HPF Urine Squamous Epithelial Cells None seen <5 /hpf Urine Bacteria None seen None Seen /hpf Urine Glucose Normal Normal mg/dL Magnesium Level 2.3 1.6-2.6 mg/dL Test 03/04/25 15:54 Range/Units POC Glucose 105 70-106 mg/dl Assessment/Plan Problem List: (1) Chest pain (2) Elevated troponin (3) Lesion of lung Plan ECHO, cardiology consult Plan discussed with: Patient JAVED OCAMPO MD Mar 05, 2025 21:53
[2025-03-06] VITALS (7 sets, daily range): BP systolic 104–110; BP diastolic 65–73; PULSE 60–66; RESP 16–19; TEMP 97.9–98.8; O2SAT 97–98
--- NOTE | 2025-03-06 14:46 | DVHPN2 ---
Progress Note - Dictate Date Seen: Mar 06, 2025 Medical Necessity Reason Pt with a Central, PICC or Fol: No Subjective Patient continues to note chest pain on deep inspiration. vital signs Vital Sign Date Time Temp Pulse Resp B/P (MAP) Pulse Ox O2 Delivery O2 Flow Rate FiO2 03/06/25 13:00 97.9 66 19 110/70 (83) 97 97.9 03/06/25 08:00 Room Air* 0 21 Total Intake and Output 03/05/25 03/05/25 03/06/25 15:00 23:00 07:00 Intake Total 850 ml 0 ml Output Total 850 ml Balance 0 ml 0 ml medications Current Medications Medications Dose Ordered Sig/Silvia Route Start Time Stop Time Status Last Admin Dose Admin Nitroglycerin 0.4 mg Q5MINP PRN SL 03/04/25 21:45 Morphine Sulfate 2 mg Q30M PRN IV 03/04/25 21:45 Enoxaparin Sodium 60 mg BID SC 03/04/25 22:00 03/04/25 21:56 60 MG objective General appearance: No acute distress Respiratory: Lungs clear to auscultation. No wheezing, crackles Cardiovascular: Regular rate and rhythm, no murmurs. No edema Abdomen: Soft, nondistended, nontender, bowel sounds present MSK: Normal range of motion. Neuro: Alert, no neurological deficits Psych: Appropriate mood and affect. laboratory and microbiology Laboratory Tests 03/05/25 07:32 Test 03/05/25 07:32 Range/Units Serum Glucose 90 74-106 mg/dL Problem List 1. Chest Pain 2. 2.1 cm soft tissue nodule in the left apex 3. Hepatic Steatosis Assessment/Plan -Cardiology consulted for elevated troponins -TTE wnl without valve abnormalities or signs of CHF - IR consulted for lung mass biopsy. Plan for 03/07 due to scheduling. -Hold home eliquis at this time -NPO at midnight -Full Code Plan discussed with: Patient HALLE RICO DO Mar 06, 2025 14:46
--- NOTE | 2025-03-06 16:18 | DVHINCON2 ---
Date of service: Mar 05, [address] Danielle Reason for Consultation Left upper lobe spiculated lung nodule History of Present Illness A 64-year-old woman with past medical history of AFib, on amiodarone and Eliquis, status post PPM, questionable neoplasm of left upper lung who presents to ED on 03/04/25 with c/o generalized weakness. Patient reported generalized weakness associated with intermittent mid chest and throat discomfort and malaise for the past 3 weeks. She had seen her shield runner Dr. Chakraborty 2 months ago for regular checkup. Denied history of NC or CAD. In the ED, patient was found to have mild troponin elevation, 91/98/94. Patient underwent a 12 lead ECG revealing AV paced. Chest x-ray showed right basilar airspace opacification. Patient was admitted for further care and pulmonary consultation is requested for evaluation and management due to the above findings. Review of Systems: 14-point review of systems negative unless otherwise noted above. Past Medical History: AFib, on amiodarone and Eliquis, status post PPM, questionable neoplasm of left upper lung. Past Surgical History: Status post PPM, dual chamber. Medications: Reviewed. Allergies: No known drug allergies. Family History: No family history of premature CAD. No family history of lung disorders. Social History: Nonsmoker. No alcohol or illicit drug use. Family History: Patient reports no known family medical history. Allergies: Coded Allergies: NO KNOWN ALLERGIES (Unverified , 09/27/21) Home Meds Reported Medications Magnesium Oxide (MAGNESIUM OXIDE) 400 Mg Tab, 400 MG OR, TAB 09/27/21 Apixaban Base (ELIQUIS) 5 Mg Tab, 5 MG PO BID, TAB 09/27/21 Vital Signs Vital Signs Date Time Temp Pulse Resp B/P (MAP) Pulse Ox O2 Delivery O2 Flow Rate FiO2 03/06/25 13:00 97.9 66 19 110/70 (83) 97 97.9 03/06/25 08:00 Room Air* 0 21 Physical Exam Gen.: Patient lying in bed in no apparent distress. Breathing on room air. Head: Normocephalic, atraumatic. Eyes: EOMI/PERRLA. Ears: Normal hearing. Normal anatomy. Neck/trachea: Trachea midline, supple. Nose: Normal external anatomy. Mouth: Moist mucous membranes. Chest: Decreased air entry bilaterally. No wheezing or rhonchi. Cardiovascular: Positive S1, positive S2. Regular rate and rhythm. Abdomen: Positive bowel sounds in all 4 quadrants. Soft, non-tender, non- distended. : Deferred. Rectal: Deferred. Skin: Warm, dry. Intact. Extremities: 2+ radial pulses bilaterally. No lower extremity edema. Neuro: Awake, alert, oriented x3. No gross motor or sensory deficits. Cranial nerves II through XII intact. Gait not assessed. Labs/Diagnostic Data Labs Test 03/05/25 07:32 03/04/25 21:57 03/04/25 18:28 03/04/25 16:17 Range/Units White Blood Count 4.8 4.4-10.8 10^3/uL Red Blood Count 4.58 4.0-5.20 10^6/uL Hemoglobin 14.1 12.2-16.2 g/dL Hematocrit 40.3 36.0-46.0 % Mean Corpuscular Volume 88.1 80.0-100.0 fL Mean Corpuscular Hemoglobin 30.7 28.0-32.0 pg Mean Corpuscular Hemoglobin Concent 34.9 32.0-36.0 g/dL Red Cell Distribution Width 12.8 11.8-14.3 % Platelet Count 149 140-450 10^3/uL Mean Platelet Volume 7.6 6.9-10.8 fL Neutrophils (%) (Auto) 49.7 37.0-80.0 % Lymphocytes (%) (Auto) 42.3 10.0-50.0 % Monocytes (%) (Auto) 6.0 0.0-12.0 % Eosinophils (%) (Auto) 1.4 0.0-7.0 % Basophils (%) (Auto) 0.6 0.0-2.0 % Neutrophils # (Auto) 2.4 1.6-8.6 10 ^3/uL Lymphocytes # (Auto) 2.0 0.4-5.4 10 ^3/uL Monocytes # (Auto) 0.3 0-1.3 10 ^3/uL Eosinophils # (Auto) 0.1 0-0.8 10 ^3/uL Basophils # (Auto) 0 0-0.2 10 ^3/uL Nucleated Red Blood Cells 0.1 % Sodium Level 138 136-145 mmol/L Potassium Level 4.0 3.5-5.1 mmol/L Chloride Level 106 98-107 mmol/L Carbon Dioxide Level 24 20-31 mmol/L Anion Gap 8 5-15 Blood Urea Nitrogen 18 9-23 mg/dL Creatinine 0.84 0.550-1.02 mg/dL Glomerular Filtration Rate Calc 79 >90 mL/min BUN/Creatinine Ratio 21.4 H 10.0-20.0 Serum Glucose 90 74-106 mg/dL Hemoglobin A1c 5.0 <5.7 % A1C Calcium Level 9.6 8.7-10.4 mg/dL Total Bilirubin 0.9 0.2-1.0 mg/dL Aspartate Amino Transferase (AST) 17 13-40 U/L Alanine Aminotransferase (ALT) 14 7-40 U/L Alkaline Phosphatase 60 46-116 U/L Troponin I High Sensitivity 94 *H </=34 ng/L B-Type Natriuretic Peptide 40.63 0-100 pg/mL Total Protein 7.0 5.7-8.2 g/dL Albumin 4.5 3.2-4.8 g/dL Triglycerides Level 95 < 150 mg/dL Cholesterol Level 217 H < 200 mg/dL LDL Cholesterol 135 H < 100 mg/dL HDL Cholesterol 63 H 40-59 mg/dL Thyroid Stimulating Hormone (TSH) 1.62 0.55-4.78 uIU/mL Prothrombin Time 10.8 9.3-11.8 sec Prothrombin Time INR 1.02 0.9-1.15 Urine Color Colorless Yellow Urine Clarity Clear Clear Urine pH 5.5 5.0-9.0 Urine Specific [place] 1.007 1.001-1.035 Urine Protein Negative Negative Urine Ketones Negative Negative Urine Blood Negative Negative /uL Urine Nitrite Negative Negative Urine Bilirubin Negative Negative Urine Urobilinogen Normal Negative mg/dL Urine Leukocyte Esterase 1+ Negative /uL Urine RBC 1 0 - 4 /hpf Urine Microscopic WBC 4 0-5 /HPF Urine Squamous Epithelial Cells None seen <5 /hpf Urine Bacteria None seen None Seen /hpf Urine Glucose Normal Normal mg/dL Magnesium Level 2.3 1.6-2.6 mg/dL Test 03/04/25 15:54 Range/Units POC Glucose 105 70-106 mg/dl Assessment Impression: Left upper lobe spiculated lung nodule [id number] myocardial infarction Atrial fibrillation on anticoagulation Hepatic Steatosis/Fatty liver disease Plan: Supplemental oxygen PRN Titrate to keep O2 sats above 92%. Chest/abd-pelvis CT demonstrated 2.1 cm solid soft tissue nodule in the left apex. Hepatic steatosis. Cardiology consult, follow up cardio recommendations. TTE within normal limits without valve abnormalities or signs of CHF Therapeutic Lovenox for AFib IR consulted for lung mass biopsy - plan for 03/07/25. Hold therapeutic Lovenox, hold home Eliquis NPO at midnight Monitor renal function. Monitor electrolytes. Supplement as necessary. Monitor ins and outs. DVT prophylaxis. Prognosis: Poor given patient's multiple co-morbidities. Rest of plan per hospitalist and other consultants. Thank you, Dr. Danielle, for allowing me to participate in this patient's care. Further recommendations will depend on the patient's clinical course. Please do not hesitate to contact me if you have any questions or concerns. This medical document was created using an electronic medical record system with [employer] dictation system. Although these documentations are being carefully reviewed, there may still be some phonetic and typographical changes. The errors are purely typographical, due to imperfection on the software program, and do not reflect any compromise in the patient's medical care. Plan discussed with: Patient, Other (RN/Dr. Danielle) ADAM COVARRUBIAS MD Mar 06, 2025 16:18
--- NOTE | 2025-03-06 21:43 | DVHPN2 ---
Progress Note - Dictate Date Seen: Mar 06, 2025 Medical Necessity Reason Pt with a Central, PICC or Fol: No Subjective Patient was seen and evaluated in follow up. No overnight events. Patient is c/o chest pain on deep inspiration. Chol 217, LDL 135, HDL 63. TSH is WNL. Echo is pending. Telemetry reviewed. vital signs Vital Sign Date Time Temp Pulse Resp B/P (MAP) Pulse Ox O2 Delivery O2 Flow Rate FiO2 03/06/25 21:00 98.0 61 17 106/70 (82) 98 98.0 03/06/25 08:00 Room Air* 0 21 Total Intake and Output 03/05/25 03/05/25 03/06/25 15:00 23:00 07:00 Intake Total 850 ml 0 ml Output Total 850 ml Balance 0 ml 0 ml medications Current Medications Medications Dose Ordered Sig/Silvia Route Start Time Stop Time Status Last Admin Dose Admin Nitroglycerin 0.4 mg Q5MINP PRN SL 03/04/25 21:45 Morphine Sulfate 2 mg Q30M PRN IV 03/04/25 21:45 Enoxaparin Sodium 60 mg BID SC 03/04/25 22:00 03/04/25 21:56 60 MG objective GENERAL: Alert and oriented x 3. No acute distress. EYES: PERRL, EOMI. Anicteric. HENT: Moist mucous membranes. LUNGS: Clear to auscultation bilaterally. CARDIOVASCULAR: Regular rate and rhythm. ABDOMEN: Soft, nontender and nondistended. EXTREMITIES: No edema. NEUROLOGIC: No focal neurological deficits. SKIN: Warm, dry. laboratory and microbiology Laboratory Tests 03/05/25 07:32 Test 03/05/25 07:32 Range/Units Serum Glucose 90 74-106 mg/dL Problem List NSTEMI likely noncardiac. History of AFib on amiodarone and Eliquis. Presence of permanent pacemaker. Generalized weakness. Lung nodule pending biopsy. Assessment/Plan Continued all current supportive medical care. Echo. DVT prophylactics. Morphine for pain management. Nitro SL. Additional plan as per the hospital course. Plan discussed with: Patient GRIS TERRY MD Mar 06, 2025 21:43
[2025-03-07 01:00] VITALS: BP 90/54; PULSE 60; RESP 18; TEMP 98.3; O2SAT 98
[2025-03-07 05:00] VITALS: BP 94/61; PULSE 62; RESP 17; TEMP 98; O2SAT 98
[2025-03-07] MEDS ORDERED: LIDOCAINE 2%HCL (LOCAL ANESTH.) INJ 10ml MDV ONE (07:39)
[2025-03-07] MEDS ORDERED: fentaNYL CITRATE 100 MCG/2 ML VL IV ONE (07:45)
[2025-03-07] MEDS ORDERED: MIDAZOLAM HCL 2MG/2ML 2ml VIAL (1mg/ml) IV ONE (07:45)
[2025-03-07 08:00] VITALS: PULSE 60
[2025-03-07 09:07] VITALS: BP 105/64; PULSE 63; RESP 16; TEMP 98.1; O2SAT 98
[2025-03-07 09:48] LABS: INR 1.02 (0.9-1.15); Prothrombin Time 10.8 sec (9.3-11.8)
[2025-03-07 09:51] LABS: Alanine Aminotransferase 15 U/L (7-40); Albumin 4.5 g/dL (3.2-4.8); Alkaline Phosphatase 59 U/L (46-116); Anion Gap 8 (5-15); Aspartate Aminotransferase 16 U/L (13-40); BUN/Creatinine Ratio 16.5 (10.0-20.0); Basophils # (auto) 0 10 ^3/uL (0-0.2); Basophils % (auto) 0.4 % (0.0-2.0); Bilirubin, Total 0.9 mg/dL (0.2-1.0); Blood Urea Nitrogen 15 mg/dL (9-23); Calcium 9.8 mg/dL (8.7-10.4); Carbon Dioxide 25 mmol/L (20-31); Eosinophils # (auto) 0.1 10 ^3/uL (0-0.8); Eosinophils % (auto) 1.4 % (0.0-7.0); Glucose 93 mg/dL (74-106); Hematocrit 40.4 % (36.0-46.0); Hemoglobin 13.9 g/dL (12.2-16.2); Lymphocytes # (auto) 1.6 10 ^3/uL (0.4-5.4); Lymphocytes % (auto) 34.9 % (10.0-50.0); Mean Corpuscular Hemoglobin 30.7 pg (28.0-32.0); Mean Corpuscular Hgb Conc. 34.5 g/dL (32.0-36.0); Mean Corpuscular Volume 89.1 fL (80.0-100.0); Monocytes # (auto) 0.3 10 ^3/uL (0-1.3); Monocytes % (auto) 6.3 % (0.0-12.0); Neutrophils # (auto) 2.6 10 ^3/uL (1.6-8.6); Nucleated Red Blood Cells % 0.3 %; Platelet Count (auto) 149 10^3/uL (140-450); Potassium 3.8 mmol/L (3.5-5.1); Red Blood Cells 4.53 10^6/uL (4.0-5.20); Red Cell Distribution Width 12.4 % (11.8-14.3); Sodium 140 mmol/L (136-145); White Blood Cell 4.6 10^3/uL (4.4-10.8)
[2025-03-07 09:52] LABS: Chloride 107 mmol/L (98-107)
[2025-03-07 12:34] VITALS: BP 120/70; PULSE 60; RESP 18; TEMP 98.7; O2SAT 100
[2025-03-07 12:48] VITALS: BP 120/70; PULSE 60; RESP 18; TEMP 98.7; O2SAT 100
--- NOTE | 2025-03-07 12:48 | DVHDS2 ---
Discharge Summary Date of Admission Mar 04, 2025 at 21:34 Date of Discharge: Mar 07, 2025 Labs/Diagnostic Data: Laboratory Results Test 03/07/25 08:55 03/05/25 07:32 03/04/25 18:28 03/04/25 16:17 White Blood Count 4.6 10^3/uL (4.4-10.8) Red Blood Count 4.53 10^6/uL (4.0-5.20) Hemoglobin 13.9 g/dL (12.2-16.2) Hematocrit 40.4 % (36.0-46.0) Mean Corpuscular Volume 89.1 fL (80.0-100.0) Mean Corpuscular Hemoglobin 30.7 pg (28.0-32.0) Mean Corpuscular Hemoglobin Concent 34.5 g/dL (32.0-36.0) Red Cell Distribution Width 12.4 % (11.8-14.3) Platelet Count 149 10^3/uL (140-450) Mean Platelet Volume 7.7 fL (6.9-10.8) Neutrophils (%) (Auto) 57.0 % (37.0-80.0) Lymphocytes (%) (Auto) 34.9 % (10.0-50.0) Monocytes (%) (Auto) 6.3 % (0.0-12.0) Eosinophils (%) (Auto) 1.4 % (0.0-7.0) Basophils (%) (Auto) 0.4 % (0.0-2.0) Neutrophils # (Auto) 2.6 10 ^3/uL (1.6-8.6) Lymphocytes # (Auto) 1.6 10 ^3/uL (0.4-5.4) Monocytes # (Auto) 0.3 10 ^3/uL (0-1.3) Eosinophils # (Auto) 0.1 10 ^3/uL (0-0.8) Basophils # (Auto) 0 10 ^3/uL (0-0.2) Nucleated Red Blood Cells 0.3 % Prothrombin Time 10.8 sec (9.3-11.8) Prothrombin Time INR 1.02 (0.9-1.15) Sodium Level 140 mmol/L (136-145) Potassium Level 3.8 mmol/L (3.5-5.1) Chloride Level 107 mmol/L (98-107) Carbon Dioxide Level 25 mmol/L (20-31) Anion Gap 8 (5-15) Blood Urea Nitrogen 15 mg/dL (9-23) Creatinine 0.91 mg/dL (0.550-1.02) Glomerular Filtration Rate Calc 71 mL/min (>90) BUN/Creatinine Ratio 16.5 (10.0-20.0) Serum Glucose 93 mg/dL (74-106) Calcium Level 9.8 mg/dL (8.7-10.4) Total Bilirubin 0.9 mg/dL (0.2-1.0) Aspartate Amino Transferase (AST) 16 U/L (13-40) Alanine Aminotransferase (ALT) 15 U/L (7-40) Alkaline Phosphatase 59 U/L (46-116) Total Protein 7.0 g/dL (5.7-8.2) Albumin 4.5 g/dL (3.2-4.8) Hemoglobin A1c 5.0 % A1C (<5.7) Troponin I High Sensitivity 94 ng/L (</=34) B-Type Natriuretic Peptide 40.63 pg/mL (0-100) Triglycerides Level 95 mg/dL (< 150) Cholesterol Level 217 mg/dL (< 200) LDL Cholesterol 135 mg/dL (< 100) HDL Cholesterol 63 mg/dL (40-59) Thyroid Stimulating Hormone (TSH) 1.62 uIU/mL (0.55-4.78) Urine Color Colorless (Yellow) Urine Clarity Clear (Clear) Urine pH 5.5 (5.0-9.0) Urine Specific [place] 1.007 (1.001-1.035) Urine Protein Negative (Negative) Urine Ketones Negative (Negative) Urine Blood Negative /uL (Negative) Urine Nitrite Negative (Negative) Urine Bilirubin Negative (Negative) Urine Urobilinogen Normal mg/dL (Negative) Urine Leukocyte Esterase 1+ /uL (Negative) Urine RBC 1 /hpf (0 - 4) Urine Microscopic WBC 4 /HPF (0-5) Urine Squamous Epithelial Cells None seen /hpf (<5) Urine Bacteria None seen /hpf (None Seen) Urine Glucose Normal mg/dL (Normal) Magnesium Level 2.3 mg/dL (1.6-2.6) Test 03/04/25 15:54 POC Glucose 105 mg/dl (70-106) Other Laboratory Tests 03/07/25 08:55 Brief Hx & Hospital Course: Patient is a 64-year-old female with past medical history of AICD, on Eliquis, who presented with complaints of chest pain. Patient notes that she was recently diagnosed with a mass in her left lung that is pending biopsy. She notes she has chest pain with respiration. CT chest abdomen and pelvis was done which revealed a 2.1 cm soft nodule in the left apex. There was no other pulmonary nodules or masses or lesions noted. Interventional radiology was consulted for biopsy. Patient completed the biopsy and was monitored for several hours. She was ultimately discharged after noted to be stable. Patient was also evaluated by cardiology for troponins noted to be in the 90s. TTE was done which showed LVEF of 65% with no other abnormalities. Patient is to follow-up with her PCP and pulmonary for lung mass biopsy results. Patient is to resume Eliquis 1 day after discharge. [facility] case management arrange follow-up appointments. Condition at Discharge: Good Final Diagnosis/Problems List Lung Mass Secondary Diagnosis: 1. Chest Pain, non-cardiac and likely from lung nodule 2. 2.1 cm soft tissue nodule in the left apex 3. Hepatic Steatosis 4. NSTEMI likely due to demand ischemia Discharge Disposition: Home Discharge Instruct/Medications Diet: Cardiac 2g Na,low cholest Activity: No Restrictions, As Tolerated Follow Up/Referral: Follow up with pulmonary and PCP regarding lung biopsy results. Medications: Restart eliquis in 1 day. No new medications. Discharge Statement: "Patient was advised to return to the ER or call 911 if any headaches, dizziness, shortness of breath, chest pain, abdominal pain, bleeding, fevers, or worsening of medical condition. Patient was counseled about treatment plan, medications, possible side effects, patientverbalized understanding. All questions were answered to the best of my ability. This discharge took greater then 30 minutes in planning, reviewing documentation, counseling the patient, and discussing with other team members." ASSESSMENT ASSESSMENT Assessment Lung Mass HALLE RICO DO Mar 07, 2025 12:47
--- NOTE | 2025-03-07 12:56 | DVH ---
CT CHEST WITHOUT CONTRAST, HISTORY: LUNG BX PROCEDURE: Informed consent was obtained. The patient was placed prone on the CT scanner. A limited l ocalization CT scan of the lung was obtained. The skin overlying the lesion was prepped with chlorhex idine which was allowed to dry and draped in sterile fashion. Time out was performed. The skin and so ft tissues were infiltrated with Xylocaine, and IV sedation was administered. With intermittent CT gu idance, a 19 gauge Temno outer coaxial guiding needle was advanced into the left lung nodule. The nee dle position was confirmed with CT scan. 2 core biopsies were obtained using Temno inner 20 gauge bio psy needle. The specimens were sent in formalin to pathology for analysis. A visceral blood patch wa s applied as the needle was withdrawn the needle was withdrawn, and post procedural CT obtained throu gh the biopsy region. No immediate complication was identified was noted, and patient was transport t o recovery in stable condition without respiratory distress. DLP = 1188 mGy-cm. SEDATION: Dr. Amira Driver was personally responsible for the administration of moderate sedation during the procedure performed, including the use of an independent trained observer who had no other duties during the procedure. The drugs utilized were IV fentanyl and versed (see nursing log for details). The total time of supervision by the attending physician was approximately 30 minutes. FINDINGS: Limited CT scan demonstrates an approximately 2 cm soft tissue nodule in the left apex and the biopsy needle within the margin of the lung mass. No significant post biopsy hemorrhage or pneumo thorax is noted. IMPRESSION/PLAN: CT guided lung biopsy. Pathology pending. ; will follow up CXRs. Bedrest until cleared by THO subramanian post-biopsy CXRs.
--- NOTE | 2025-03-07 21:28 | DVHPN2 ---
Progress Note - Dictate Date Seen: Mar 07, 2025 Medical Necessity Reason Pt with a Central, PICC or Fol: No Subjective Patient was seen and evaluated in follow up. Patient has no new complaints at this time. Echo shows an EF of 65%. Patient denies any cardiac symptoms. Patient is cardiac stable for discharge. Telemetry reviewed. vital signs Vital Sign Date Time Temp Pulse Resp B/P (MAP) Pulse Ox O2 Delivery O2 Flow Rate FiO2 03/07/25 12:48 98.7 60 18 100 03/07/25 12:34 120/70 (87) 03/07/25 08:00 Room Air* 0 21 Total Intake and Output 03/06/25 03/06/25 03/07/25 15:00 23:00 07:00 Intake Total 360 ml 250 ml Balance 360 ml 250 ml objective GENERAL: Alert and oriented x 3. No acute distress. EYES: PERRL, EOMI. Anicteric. HENT: Moist mucous membranes. LUNGS: Clear to auscultation bilaterally. CARDIOVASCULAR: Regular rate and rhythm. ABDOMEN: Soft, nontender and nondistended. EXTREMITIES: No edema. NEUROLOGIC: No focal neurological deficits. SKIN: Warm, dry. laboratory and microbiology Laboratory Tests 03/07/25 08:55 Test 03/07/25 08:55 Range/Units Serum Glucose 93 74-106 mg/dL Problem List NSTEMI likely noncardiac. History of AFib on amiodarone and Eliquis. Presence of permanent pacemaker. Generalized weakness. Lung nodule pending biopsy. Assessment/Plan Continued all current supportive medical care. DVT prophylactics. Morphine for pain management. Nitro SL. Additional plan as per the hospital course. Dietary Evaluation Review Comments: 1. Continue current diet as tolerated 2. Will trial Ensure Enlive 1x/day given variable PO intakes (provides 350 kcal, 20 gm pro per carton) 3. Continue to monitor PO, wt trends, labs Expected Outcomes/Goals: Improved nutritional intakes. Plan discussed with: Patient GRIS TERRY MD Mar 07, 2025 21:27
== END 2025-03-07 13:40 | disposition home or self-care (01) | DRG 136 ==
LOC: ER 15:44 → OVERFLOW 21:34 → TELE-EAST 03-05 21:27
PROVIDERS: ADMIT Internal Medicine; ATTEND Internal Medicine
PROC: 4B02XSZ Measurement of Cardiac Pacemaker, External Approach (ICD-10-PCS; 2025-03-05)
PROC: 0BBL3ZX Excision of Left Lung, Percutaneous Approach, Diagnostic (ICD-10-PCS; principal; 2025-03-07)
DX: C34.92 Malignant neoplasm of unspecified part of left bronchus or lung (principal); I21.A1 Myocardial infarction type 2; K76.0 Fatty (change of) liver, not elsewhere classified; I48.91 Unspecified atrial fibrillation; Z95.810 Presence of automatic (implantable) cardiac defibrillator; Z87.442 Personal history of urinary calculi
CPT/HCPCS: 10005; 36415; 71045; 71250; 71260; 74177; 77012; 80053; 80061; 81001; 82962; 83036; 83735; 83880; 84443; 84484; 85025; 85610; 93005; 93306; 99291; G0378; J2003; J2250

== ENCOUNTER 2025-10-30 19:45 | Inpatient (IN) | payer OTHER ==
[~2025-10-30] VITALS: Ht 162.6 cm; Wt 64.0 kg
[2025-10-30] MEDS: ENOXAPARIN SOD 60 MG/0.6 ML SYRINGE SC SCH (00:21)
[~2025-10-30 19:45] MED LIST changes: -AMIO200T33 PO; -POTA99TA5 PO
--- NOTE | 2025-10-30 19:52 | ED.PDOC ---
History of Present Illness HPI Comments This is a 64-year-old female who comes in with chief complaint of left-sided abdominal pain as well as an elevated troponin level. The patient states that she went to the urgent care today because she has been having some left lower quadrant and left upper quadrant pain. She states that she was diagnosed with lung cancer and has a procedure done on 09/25 at [facility]. The patient states that after the procedure, she developed some left-sided abdominal pain which is not been relieved since. She denies any nausea, vomiting or fever. She also states that she feels like she is somewhat gaseous. When she went to the urgent care, they did run some blood work and found that her troponin level was elevated over 80. At this time she denies any shortness a breath but can not tell me if she is having chest pain or not. Time Seen by MD: 19:46 Primary Care Provider: HARSHA Edmonds Notes: Nurses Notes, Powered Bridge Specialist Notes, Medications, Allergies (No allergies to medications) Allergies: Coded Allergies: NO KNOWN ALLERGIES (Unverified , 09/27/21) Home Meds Reported Medications Magnesium Oxide (MAGNESIUM OXIDE) 400 Mg Tab, 400 MG OR, TAB 09/27/21 Apixaban Base (ELIQUIS) 5 Mg Tab, 5 MG PO BID, TAB 09/27/21 Information Source: Patient, Emergency Med Personnel Mode of Arrival: EMS Severity: Moderate Timing: Other (Unknown period of time) Duration: Since onset Prehospital treatment: None Location: Left-sided abdominal pain with elevated troponin level Associated signs and symptoms No shortness a breath, nausea or vomiting Past Medical History PAST MEDICAL HISTORY: AFIB, Cancer (Previous history of lung cancer), Kidney Stones Surgical History: Pacemaker Surgical History (Other): Right shoulder surgery, partial lung resection 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 Pertinent MORTISING MACHINE OPERATOR History, Unknown Family History Family History: Reviewed,noncontributory to illness, Unknown Social History Smoker: Non-Smoker Alcohol: Denies ETOH Use Drugs: Denies Drug Use Lives In: Home Constitutional: denies: chills, diaphoresis, fatigue, fever, malaise, sweats, weakness, others EENTM: denies: blurred vision, double vision, ear bleeding, ear discharge, ear drainage, ear pain, ear ringing, eye pain, eye redness, hearing loss, mouth pain, mouth swelling, nasal discharge, nose bleeding, nose congestion, nose pain, photophobia, tearing, throat pain, throat swelling, voice changes, others Respiratory: denies: cough, hemoptysis, orthopnea, SOB at rest, shortness of breath, SOB with excertion, stridor, wheezing, others Cardiovascular: reports: chest pain; denies: dizzy spells, diaphoresis, Dyspnea on exertion, edema, irregular heart beat, left arm pain, lightheadedness, palpitations, PND, syncope, others Gastrointestinal: reports: abdominal pain; denies: abdomen distended, blood streaked bowels, constipated, diarrhea, dysphagia, difficulty swallowing, hematemesis, melena, nausea, poor appetite, poor fluid intake, rectal bleeding, rectal pain, vomiting, others Genitourinary: denies: abnormal vagina bleeding, burning, dyspareunia, dysuria, flank pain, frequency, hematuria, incontinence, pain, , vagina discharge, urgency, others Neurological: denies: dizziness, fainting, headache, left sided numbness, left sided weakness, numbness, paresthesia, pre-existing deficit, right sided nu mbness, right sided weakness, seizure, speech problems, tingling, tremors, weakness, others Musculoskeletal: denies: back pain, gout, joint pain, joint swelling, muscle pain, muscle stiffness, neck pain, others Integumetry: denies: bruises, change in color, change in hair/nails, dryness, laceration, lesions, lumps, rash, wounds, others Allergic/Immunocompromised: denies: Difficulty Healing, Frequent Infections, Hives, Itching, others Hematologic/Lymphatic: denies: anemia, blood clots, easy bleeding, easy bruising, swollen glands, others Endocrine: denies: excessive hunger, excessive sweating, excessive thirst, excessive urination, flushing, intolerance to cold, intolerance to heat, unexplained weight gain, unexplained weight loss, others Psychiatric: denies: anxiety, bipolar disorder, depression, hopeless, panic disorder, schizophrenia, sleepless, suicidal, others Physical Exam General Appearance: Moderate Distress HEENT: Normal ENT Inspection, Pharynx Normal, TMs Normal Neck: Full Range of Motion, Non-Tender, Normal, Normal Inspection Respiratory: Chest Non-Tender, Lungs Clear, No Accessory Muscle Use, No Respiratory Distress, Normal Breath Sounds Cardiovascular: No Edema, No JVD, No Murmur, No Gallop, Normal Peripheral Pulses, Regular Rate/Rhythm Breast Exam: Deferred Gastrointestinal: No Organomegaly, Non Tender, No Pulsatile Mass, Normal Bowel Sounds, Soft Genitalia: Deferred Pelvic: Deferred Rectal: Deferred Extremities: No calf tenderness, Normal capillary refill, Normal inspection, Normal range of motion, Non-tender, No pedal edema Musculoskeletal : Apperance: Normal Neurologic: Alert, contract implementation analyst II-XII nml as Tested, No Motor Deficits, Normal Affect, Normal Mood, No Sensory Deficits Cerebellar Function: Normal Reflexes: Normal Skin: Dry, Normal Color, Warm Lymphatic: No Adenopathy Was a procedure done? Was a procedure done?: No EKG EKG : Pulse Rate (adult): 61 Irwin: Normal Cardiac Rhythm: Paced Block: None ST: Nonsp Differential Dx Considerations may include: Generalized weakness, electrolyte imbalance, elevated troponin level, ACS, MA X-Ray, Labs, Meds, VS Vital Signs Date Time Temp Pulse Resp B/P (MAP) Pulse Ox O2 Delivery O2 Flow Rate FiO2 10/30/25 19:52 61 10/30/25 19:51 99.1 95 16 130/88 97 99.1 10/30/25 19:50 61 Lab Test 10/30/25 19:55 Range/Units White Blood Count 3.7 L 4.4-10.8 10^3/uL Red Blood Count 3.92 L 4.0-5.20 10^6/uL Hemoglobin 11.7 L 12.2-16.2 g/dL Hematocrit 35.4 L 36.0-46.0 % Mean Corpuscular Volume 90.3 80.0-100.0 fL Mean Corpuscular Hemoglobin 29.8 28.0-32.0 pg Mean Corpuscular Hemoglobin Concent 33.0 32.0-36.0 g/dL Red Cell Distribution Width 13.1 11.8-14.3 % Platelet Count 151 140-450 10^3/uL Mean Platelet Volume 7.9 6.9-10.8 fL Neutrophils (%) (Auto) 53.7 37.0-80.0 % Lymphocytes (%) (Auto) 36.4 10.0-50.0 % Monocytes (%) (Auto) 8.0 0.0-12.0 % Eosinophils (%) (Auto) 1.5 0.0-7.0 % Basophils (%) (Auto) 0.4 0.0-2.0 % Neutrophils # (Auto) 2.0 1.6-8.6 10 ^3/uL Lymphocytes # (Auto) 1.4 0.4-5.4 10 ^3/uL Monocytes # (Auto) 0.3 0-1.3 10 ^3/uL Eosinophils # (Auto) 0.1 0-0.8 10 ^3/uL Basophils # (Auto) 0 0-0.2 10 ^3/uL Nucleated Red Blood Cells 0.1 % Sodium Level 140 136-145 mmol/L Potassium Level 3.7 3.5-5.1 mmol/L Chloride Level 105 98-107 mmol/L Carbon Dioxide Level 23 20-31 mmol/L Anion Gap 12 5-15 Blood Urea Nitrogen 8 L 9-23 mg/dL Creatinine 0.94 0.550-1.02 mg/dL Glomerular Filtration Rate Calc 69 >90 mL/min BUN/Creatinine Ratio 8.5 L 10.0-20.0 Serum Glucose 79 74-106 mg/dL Calcium Level 9.3 8.7-10.4 mg/dL Troponin I High Sensitivity 141 *H </=34 ng/L IV Hep-Lock was established.. The CBC shows anemia with a hemoglobin of 11.7 and hematocrit of 35.4 The chemistry panel is within normal limits The troponin level is elevated at 141 The chest x-ray shows some cardiomegaly We spoke with the [facility] physician and at this time the patient is being evaluated by him He will make the final disposition on this patient We do feel that the patient needs to be admitted at this time Images Reviewed?: Images reviewed and evaluated by me Time of 1ST Reevaluation: 19:51 Reevaluation 1ST: Unchanged Patient Education/Counseling: Diagnosis, Treatment, Prognosis Family Education/Counseling: No Family Present SEPSIS Sepsis Screen Physician Orders Chest Portable (10/30/25 19:47) Urinalysis (10/30/25 19:47) Heplock Iv (10/30/25 19:47) Division Supervisor (10/30/25 19:47) Blood Pressure (10/30/25 19:47) Pulse Oximetry (10/30/25 19:47) Troponin-I Hs (10/30/25 20:47) Troponin-I Hs (10/30/25 22:47) Electrocardigram (10/30/25 20:47) Electrocardigram (10/30/25 22:47) Vital Signs Date Time Temp Pulse Resp B/P (MAP) Pulse Ox O2 Delivery O2 Flow Rate FiO2 10/30/25 19:52 61 10/30/25 19:51 99.1 95 16 130/88 97 99.1 10/30/25 19:50 61 Laboratory Tests Test 10/30/25 19:55 White Blood Count 3.7 10^3/uL (4.4-10.8) L Departure 1 Departure Time of Disposition: 20:51 Impression: Primary Impression: Acute abdominal pain Additional Impression: Elevated troponin Disposition: ADMITTED INPATIENT Admit to: Tele Condition: Fair Critical Care Note Critical Care Time?: Yes (35 min-critical care time only) Stability Stability form required: Yes Unstable for transfer: Telemetry monitoring (Telemetry monitoring required), ED Physician Assesment (Clinical assesment) Heart Score Heart Score: Heart Score Response (Comments) Value History Moderate Suspicious 1 EKG Repolarization Disturb 1 Age 45-64 1 Risk Factors >3 or Hx ASHD 2 Troponin 1-2 x's Normal limit 1 Total 6 ALIDA SOLIS MD Oct 30, 2025 19:52
--- NOTE | 2025-10-30 20:00 | ECG ---
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
--- NOTE | 2025-10-30 20:06 | DVH ---
EXAM: XY CHEST PORTABLE HISTORY: Elevated troponin TECHNIQUE: 1 view of the chest COMPARISON: CT CHEST WITHOUT CONTRAST on DOS: 03/07/25 FINDINGS/IMPRESSION: LUNGS: Atelectasis and/or infiltrate in the left lower lobe MEDIASTINUM: Mild cardiomegaly. Left anterior chest cardiac device. Right anterior chest Port-A-Cath BONES: No acute osseous abnormality. OTHER: None.
[2025-10-30 20:13] LABS: Hematocrit 35.4 % (36.0-46.0); Hemoglobin 11.7 g/dL (12.2-16.2); Mean Corpuscular Hemoglobin 29.8 pg (28.0-32.0); Mean Corpuscular Volume 90.3 fL (80.0-100.0); Nucleated Red Blood Cells % 0.1 %
[2025-10-30 20:27] LABS: Chloride 105 mmol/L (98-107); Potassium 3.7 mmol/L (3.5-5.1); Sodium 140 mmol/L (136-145)
[2025-10-30 20:28] LABS: Anion Gap 12 (5-15); Carbon Dioxide 23 mmol/L (20-31)
[2025-10-30 20:29] LABS: Calcium 9.3 mg/dL (8.7-10.4)
[2025-10-30 20:34] LABS: BUN/Creatinine Ratio 8.5 (10.0-20.0); Blood Urea Nitrogen 8 mg/dL (9-23); Glucose 79 mg/dL (74-106)
[2025-10-30 21:01] VITALS: PULSE 60
--- NOTE | 2025-10-30 21:12 | ECG ---
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
[2025-10-30 21:40] LABS: Urine Protein, UAD Negative (Negative)
[2025-10-30] MEDS ORDERED: MORPHINE SULFATE INJ 2 MG/ml SYRG IV PRN (22:30)
[2025-10-30] MEDS ORDERED: ONDANSETRON HCL 4 MG/2 ML VIAL IV PRN (22:30)
[2025-10-30] MEDS: MAALOX PLUS or MAALOX 30 ML PO ONE (22:40)
[2025-10-31] MEDS ORDERED: NITROGLYCERIN 0.4 MG SL TAB SL PRN (00:15)
--- NOTE | 2025-10-31 00:47 | DVHHP ---
ADMIT DATE: 10/30/2025 CHIEF COMPLAINT: left upper abdominal region pain. HISTORY OF PRESENT ILLNESS: This is a 64-year-old female with significant past medical history for atrial fibrillation with dual AV paced rhythm. Medical history for sick sinus syndrome, atrial fibrillation, status post dual AV pacemaker, history of left upper lobe cancer, status post lobectomy on 09/25/2025. History of chemotherapy x4 sessions from April to July of this year and who presents to the Emergency Room due to complaints of left lower rib cage region pain. The patient states after having her surgery at [facility], she had pain in that same area, which has been consistent since she left the hospital. The patient says it has been intermittent, but at times very significant and so she decided to go to urgent care to see what is going on. The patient states she was given oxycodone but does not take it for pain control. She says that the symptoms seem to be pressure-like, nonradiating, not associated with shortness of breath, nausea, vomiting, clamminess, or sweating. The patient says that it is not positional and non-exertional, feels that passing gas improves her symptoms. She says that eating food exacerbates her symptoms. She says that deep inspirations as well as coughing makes her symptoms worse. She has not been recently sick. Denies any fevers or chills, diarrhea, constipation, bloody or tarry stools. She does have a minimal cough, but no phlegm and no urinary frequency, urgency or burning sensation. The patient states prior to her procedure, she was seen by a manager data warehousing, Dr. Chakraborty, who did outpatient cardiac clearances with echocardiogram and treadmill stress test, which she says were normal. The patient also denies any prior history of any heart disease. PAST MEDICAL HISTORY: Left upper lung cancer. Atrial fibrillation, on Eliquis. PAST SURGICAL HISTORY: Left upper lobe lobectomy, biventricular pacer placement. SOCIAL HISTORY: No tobacco, no alcohol. No illicit drugs. MEDICATIONS AT HOME: Per medical reconciliation. MEDICATION ALLERGIES: No known drug allergies. REVIEW OF SYSTEMS: A 10-point review of systems was covered with the patient and was negative with the exception to what was present in the history of present illness. PHYSICAL EXAMINATION: VITAL SIGNS: Temperature 98.9, pulse rate is 60, respirations 15, blood pressure 117/75, pulse oximetry 99% on room air. GENERAL: Seems to be alert and oriented x4, nonacute distress female, sitting up in a chair. HEENT: Normocephalic, atraumatic. Extraocular muscles intact. Pupils are equally round and reactive to light and accommodations. Mucous membranes look moist. CARDIOVASCULAR: S1, S2 positive. Regular rate and rhythm. No rubs, gallops, or murmurs. LUNGS: Seem to be clear to auscultation bilaterally. No wheezing, rhonchi, or rales. ABDOMEN: Seems to be soft, nontender, and nondistended. Positive bowel sounds. No guarding or rebound. EXTREMITIES: No lower extremity edema, clubbing, or cyanosis. NEUROLOGIC: No focal deficits. Cranial nerves testing II-XII seem to be intact. LABORATORY WORKUP: Shows a white count 3.7, H and H 11.7 and 35.4, platelet count 151,000. No neutrophilic shift. Sodium 140, potassium 3.7, chloride 105, carbon dioxide 23, anion gap of 12, BUN of 8, creatinine 0.94, calcium 9.3, troponins of 141, 120, and 135. IMAGING: Chest x-ray shows no acute osseous abnormality, mild cardiomegaly. Left anterior chest cardiac device, right anterior chest, Port-A-Cath. EKG showed atrial ventricular dual paced rhythm, a ventricular rate of 65. No ST elevations or depressions. DIAGNOSES: * Elevated troponins. * left upper quadrant abdominal pain PLAN: The patient will be admitted to medical telemetry for under observation status. Consultation with manager data warehousing, Dr. Willian Maciel, has been requested. The patient is presenting from the [facility] due to concerns of elevated cardiac enzymes. The patient's elevated enzymes seem to be likely nonspecific at this time. The patient's symptoms seem to be correlating more of a gastric in nature rather than a cardiac pathology. The patient has had a stress test as well as an echocardiogram prior to her recent lobectomy procedure at [facility] and these troponins do not seem to be consistent with typical ischemic heart disease presentation; however, given the elevations in troponins, the patient will be admitted to under observation until Cardiology can assess the patient and give further recommendations. The patient will be placed on aspirin, enteric-coated 81 mg daily as well as Lipitor 40 mg daily. The patient is to have CBC, BMP, and lipid panel completed in the morning. Surgical incision sites seem to be clear of infection. Chest x-ray does not show any acute intrathoracic pathology. The patient does take Eliquis at home due to underlying history of atrial fibrillation. The patient's Eliquis will be converted to Lovenox. We will make her take subcu q. 12 hours and will hold off on her home Eliquis at this point in time. The patient has again labs done in the morning. The patient will also be ordered Zofran 4 mg IV p.r.n. for nausea and vomiting, morphine 2 mg IV p.r.n. for moderate to severe pain, and we will give her Protonix 40 p.o. daily to see if this improves her symptoms. The patient is a full code. Further recommendations will depend on the patient's progression. Mp Lazcano MD LM/AGAPITO TID: [id number] RECEIPT: [id number] MTD
--- NOTE | 2025-10-31 02:40 | DVHINCON2 ---
Date of service: Oct 30, 2025 Referring Physician Ayleen Reason for Consultation Elevated trop History of Present Illness This is a 64 year old female with a PMH of Dual Pacemaker, Atrial Fib on Eliquis who was referred to the hospital from [facility] urgent care due to complaints of left upper quadrant pain/ epigastric pain. Patient is status post lobectomy last month. W 3.7, Hgb 11.7, Plt 151, Bun 8, Creatinine 0.94, Glucose 79, Trops 84 -> 143 -> 120 -> 135. UA + LE + WBC. CXR: no acute pathology. EKG is NSR. Patient was admitted to the hospital. I am asked to consult on this patient. Family History: Patient reports no known family medical history. Allergies: Coded Allergies: NO KNOWN ALLERGIES (Unverified , 09/27/21) Home Meds Reported Medications Magnesium Oxide (MAGNESIUM OXIDE) 400 Mg Tab, 400 MG OR, TAB 09/27/21 Apixaban Base (ELIQUIS) 5 Mg Tab, 5 MG PO BID, TAB 09/27/21 Current Medications Current Medications Medications (Trade) Dose Ordered Sig/Silvia Route PRN Reason Start Time Stop Time Status Last Admin Ondansetron HCl (Zofran) 4 mg Q4HPRN PRN IV NAUSEA / VOMITING 10/30/25 22:30 Morphine Sulfate 2 mg Q4HPRN PRN IV MODERATE PAIN (4-6 PAIN SCALE) 10/30/25 22:30 Aspirin 81 mg DAILY PO 10/31/25 10:00 Atorvastatin Calcium (Lipitor) 40 mg HS PO 10/31/25 22:00 Nitroglycerin (Ntrostat Sublingual) 0.4 mg Q5MINP PRN SL FOR CHEST PAIN 10/31/25 00:15 Pantoprazole Sodium (Protonix Tablet) 40 mg DAILY@0600 PO 10/31/25 06:00 Ceftriaxone Sodium 50 ml @ 100 mls/hr DAILY@09 IV 10/31/25 09:00 Review of Systems Constitutional: denies: chills, diaphoresis, fatigue, fever, malaise, sweats, weakness, others EENTM: denies: blurred vision, double vision, ear bleeding, ear discharge, ear drainage, ear pain, ear ringing, eye pain, eye redness, hearing loss, mouth pain, mouth swelling, nasal discharge, nose bleeding, nose congestion, nose pain, photophobia, tearing, throat pain, throat swelling, voice changes, others Respiratory: denies: cough, hemoptysis, orthopnea, SOB at rest, shortness of breath, SOB with excertion, stridor, wheezing, others Cardiovascular: reports: chest pain; denies: dizzy spells, diaphoresis, Dyspnea on exertion, edema, irregular heart beat, left arm pain, lightheadedness, palpitations, PND, syncope, others Gastrointestinal: reports: abdominal pain; denies: abdomen distended, blood streaked bowels, constipated, diarrhea, dysphagia, difficulty swallowing, hematemesis, melena, nausea, poor appetite, poor fluid intake, rectal bleeding, rectal pain, vomiting, others Genitourinary: denies: abnormal vagina bleeding, burning, dyspareunia, dysuria, flank pain, frequency, hematuria, incontinence, pain, , vagina discharge, urgency, others Neurological: denies: dizziness, fainting, headache, left sided numbness, left sided weakness, numbness, paresthesia, pre-existing deficit, right sided numbness, right sided weakness, seizure, speech problems, tingling, tremors, weakness, others Musculoskeletal: denies: back pain, gout, joint pain, joint swelling, muscle pain, muscle stiffness, neck pain, others Integumetry: denies: bruises, change in color, change in hair/nails, dryness, laceration, lesions, lumps, rash, wounds, others Allergic/Immunocompromised: denies: Difficulty Healing, Frequent Infections, Hives, Itching, others Hematologic/Lymphatic: denies: anemia, blood clots, easy bleeding, easy bruising, swollen glands, others Endocrine: denies: excessive hunger, excessive sweating, excessive thirst, excessive urination, flushing, intolerance to cold, intolerance to heat, unexplained weight gain, unexplained weight loss, others Psychiatric: denies: anxiety, bipolar disorder, depression, hopeless, panic disorder, schizophrenia, sleepless, suicidal, others Vital Signs Vital Signs Date Time Temp Pulse Resp B/P (MAP) Pulse Ox O2 Delivery O2 Flow Rate FiO2 10/31/25 01:00 60 27 134/82 (99) 100 10/30/25 21:00 98.9 98.9 Physical Exam GENERAL: Alert and oriented x 3. No acute distress. EYES: PERRL, EOMI. Anicteric. HENT: Moist mucous membranes. LUNGS: Clear to auscultation bilaterally. CARDIOVASCULAR: Regular rate and rhythm. ABDOMEN: Soft, non-tender and non-distended. EXTREMITIES: No edema. NEUROLOGIC: No focal neurological deficits. SKIN: Warm, dry. Labs/Diagnostic Data Labs Test 10/30/25 22:45 10/30/25 21:00 10/30/25 19:55 Range/Units Troponin I High Sensitivity 135 *H </=34 ng/L Urine Color Colorless Yellow Urine Clarity Turbid H Clear Urine pH 5.5 5.0-9.0 Urine Specific [place] 1.007 1.001-1.035 Urine Protein Negative Negative Urine Ketones Negative Negative Urine Blood Negative Negative /uL Urine Nitrite Negative Negative Urine Bilirubin Negative Negative Urine Urobilinogen Normal Negative mg/dL Urine Leukocyte Esterase 2+ Negative /uL Urine RBC 2 0 - 4 /hpf Urine Microscopic WBC 9 H 0-5 /HPF Urine Squamous Epithelial Cells Mod <5 /hpf Urine Bacteria None seen None Seen /hpf Urine Glucose Normal Normal mg/dL White Blood Count 3.7 L 4.4-10.8 10^3/uL Red Blood Count 3.92 L 4.0-5.20 10^6/uL Hemoglobin 11.7 L 12.2-16.2 g/dL Hematocrit 35.4 L 36.0-46.0 % Mean Corpuscular Volume 90.3 80.0-100.0 fL Mean Corpuscular Hemoglobin 29.8 28.0-32.0 pg Mean Corpuscular Hemoglobin Concent 33.0 32.0-36.0 g/dL Red Cell Distribution Width 13.1 11.8-14.3 % Platelet Count 151 140-450 10^3/uL Mean Platelet Volume 7.9 6.9-10.8 fL Neutrophils (%) (Auto) 53.7 37.0-80.0 % Lymphocytes (%) (Auto) 36.4 10.0-50.0 % Monocytes (%) (Auto) 8.0 0.0-12.0 % Eosinophils (%) (Auto) 1.5 0.0-7.0 % Basophils (%) (Auto) 0.4 0.0-2.0 % Neutrophils # (Auto) 2.0 1.6-8.6 10 ^3/uL Lymphocytes # (Auto) 1.4 0.4-5.4 10 ^3/uL Monocytes # (Auto) 0.3 0-1.3 10 ^3/uL Eosinophils # (Auto) 0.1 0-0.8 10 ^3/uL Basophils # (Auto) 0 0-0.2 10 ^3/uL Nucleated Red Blood Cells 0.1 % Sodium Level 140 136-145 mmol/L Potassium Level 3.7 3.5-5.1 mmol/L Chloride Level 105 98-107 mmol/L Carbon Dioxide Level 23 20-31 mmol/L Anion Gap 12 5-15 Blood Urea Nitrogen 8 L 9-23 mg/dL Creatinine 0.94 0.550-1.02 mg/dL Glomerular Filtration Rate Calc 69 >90 mL/min BUN/Creatinine Ratio 8.5 L 10.0-20.0 Serum Glucose 79 74-106 mg/dL Calcium Level 9.3 8.7-10.4 mg/dL Assessment Elevated troponin, likely non specific. LUQ pain. UTI. Plan/Recommendation I agree with your ongoing assessment and care of plan. Aspirin, Lipitor. IV antibiotics as ordered. DVT and GI prophylactics. Nitro SL. Additional plan as per the hospital course. A total of 45 minutes was spent reviewing the patient record, examining the patient, making a diagnostic and therapeutic plan, discussing this plan with medical personnel, following up on diagnostic studies and following the patient for clinical stability excluding any and all procedures. At least 50% of this time was spent in direct, [id number] contact. Plan discussed with: Patient GRIS TERRY MD Oct 31, 2025 02:40
[2025-10-31 03:05] VITALS: BP 113/63; PULSE 62; RESP 18; TEMP 97.9; O2SAT 98
[2025-10-31 04:18] LABS: Chloride 105 mmol/L (98-107); Potassium 4.1 mmol/L (3.5-5.1); Sodium 142 mmol/L (136-145)
[2025-10-31 04:19] LABS: Anion Gap 10 (5-15); Calcium 9.2 mg/dL (8.7-10.4); Carbon Dioxide 27 mmol/L (20-31)
[2025-10-31 04:24] LABS: BUN/Creatinine Ratio 11.6 (10.0-20.0); Blood Urea Nitrogen 10 mg/dL (9-23); Glucose 85 mg/dL (74-106)
[2025-10-31 04:26] LABS: Hematocrit 33.0 % (36.0-46.0); Hemoglobin 11.2 g/dL (12.2-16.2); Mean Corpuscular Hemoglobin 30.2 pg (28.0-32.0); Mean Corpuscular Volume 89.3 fL (80.0-100.0); Nucleated Red Blood Cells % 0.1 %
[2025-10-31] MEDS: PANTOPRAZOLE 40 MG TAB PO SCH (06:18)
[2025-10-31 09:00] VITALS: BP 107/65; PULSE 60; RESP 12; TEMP 98.2; O2SAT 98
[2025-10-31] MEDS ORDERED: ATOR20TA50 PO (12:50)
[2025-10-31] MEDS ORDERED: ASPI-325 PO (12:50)
[2025-10-31] MEDS ORDERED: PANT40TA2 PO (12:52)
[2025-10-31 13:00] VITALS: BP 106/61; PULSE 56; RESP 12; TEMP 98.5; O2SAT 98
--- NOTE | 2025-10-31 13:38 | DVHDS2 ---
Discharge Summary Date of Admission Oct 31, 2025 at 00:07 Date of Discharge: Oct 31, 2025 Labs/Diagnostic Data: Laboratory Results Test 10/31/25 03:44 10/30/25 22:45 10/30/25 21:00 White Blood Count 3.5 10^3/uL (4.4-10.8) Red Blood Count 3.70 10^6/uL (4.0-5.20) Hemoglobin 11.2 g/dL (12.2-16.2) Hematocrit 33.0 % (36.0-46.0) Mean Corpuscular Volume 89.3 fL (80.0-100.0) Mean Corpuscular Hemoglobin 30.2 pg (28.0-32.0) Mean Corpuscular Hemoglobin Concent 33.8 g/dL (32.0-36.0) Red Cell Distribution Width 13.1 % (11.8-14.3) Platelet Count 140 10^3/uL (140-450) Mean Platelet Volume 7.7 fL (6.9-10.8) Neutrophils (%) (Auto) 54.0 % (37.0-80.0) Lymphocytes (%) (Auto) 36.7 % (10.0-50.0) Monocytes (%) (Auto) 7.5 % (0.0-12.0) Eosinophils (%) (Auto) 1.4 % (0.0-7.0) Basophils (%) (Auto) 0.4 % (0.0-2.0) Neutrophils # (Auto) 1.9 10 ^3/uL (1.6-8.6) Lymphocytes # (Auto) 1.3 10 ^3/uL (0.4-5.4) Monocytes # (Auto) 0.3 10 ^3/uL (0-1.3) Eosinophils # (Auto) 0 10 ^3/uL (0-0.8) Basophils # (Auto) 0 10 ^3/uL (0-0.2) Nucleated Red Blood Cells 0.1 % Sodium Level 142 mmol/L (136-145) Potassium Level 4.1 mmol/L (3.5-5.1) Chloride Level 105 mmol/L (98-107) Carbon Dioxide Level 27 mmol/L (20-31) Anion Gap 10 (5-15) Blood Urea Nitrogen 10 mg/dL (9-23) Creatinine 0.86 mg/dL (0.550-1.02) Glomerular Filtration Rate Calc 76 mL/min (>90) BUN/Creatinine Ratio 11.6 (10.0-20.0) Serum Glucose 85 mg/dL (74-106) Calcium Level 9.2 mg/dL (8.7-10.4) Troponin I High Sensitivity 135 ng/L (</=34) Urine Color Colorless (Yellow) Urine Clarity Turbid (Clear) Urine pH 5.5 (5.0-9.0) Urine Specific [place] 1.007 (1.001-1.035) Urine Protein Negative (Negative) Urine Ketones Negative (Negative) Urine Blood Negative /uL (Negative) Urine Nitrite Negative (Negative) Urine Bilirubin Negative (Negative) Urine Urobilinogen Normal mg/dL (Negative) Urine Leukocyte Esterase 2+ /uL (Negative) Urine RBC 2 /hpf (0 - 4) Urine Microscopic WBC 9 /HPF (0-5) Urine Squamous Epithelial Cells Mod /hpf (<5) Urine Bacteria None seen /hpf (None Seen) Urine Glucose Normal mg/dL (Normal) Other Laboratory Tests 10/31/25 03:44 Brief Hx & Hospital Course: Patient is a 64-year-old female with past medical history of atrial fibrillation with dual AV pacemaker, history of sick sinus syndrome, history of left upper lobe cancer status post lobectomy on 09/25/2025 who presented with complaints of left lower rib cage pain. Patient initially presented to the urgent care and was having elevated troponin. She denied any sternal chest pain. She was seen by shellfish bed worker Dr. Chakraborty outpatient who had performed a echogram and treadmill stress test which the patient said was normal. Patient denied any prior heart disease. Troponin here on arrival was 141>120>135 and EKG did not show any ST changes. Patient was admitted for cardiac evaluation. Her symptoms. To be noncardiac at times and patient was given a GI cocktail. She states that this significantly improved her abdominal pain. She was able to tolerate her diet without any issue. Patient was eval by cardiology and cleared for discharge. She was discharged on Protonix 40 mg p.o. daily. She is follow-up with her oncology team for further chemotherapy and treatment. Patient was discharged in stable condition. [facility] case management arrange follow-up. Condition at Discharge: Good Final Diagnosis/Problems List GERD Secondary Diagnosis: Lung Cancer currently on Chemotherapy NSTEMI due to demand Discharge Disposition: Home Discharge Instruct/Medications Diet: Cardiac 2g Na,low cholest Diet comment: Avoid caffeine, chocolate, spicy foods which can upset stomach. Activity: No Restrictions, As Tolerated Medications: Protonix 40mg daily for GERD Scheduled Apixaban Base (Eliquis), 5 MG PO BID, (Reported) Aspirin (Aspirin Low Dose), 81 MG PO DAILY Atorvastatin Calcium (Atorvastatin Calcium), 40 MG PO HS Pantoprazole Sodium Sesquihydr (Protonix), 40 MG PO DAILY Miscellaneous Medications Magnesium Oxide (Magnesium Oxide), 400 MG OR, (Reported) Discharge Statement: "Patient was advised to return to the ER or call 911 if any headaches, dizziness, shortness of breath, chest pain, abdominal pain, bleeding, fevers, or worsening of medical condition. Patient was counseled about treatment plan, medications, possible side effects, patientverbalized understanding. All questions were answered to the best of my ability. This discharge took greater then 30 minutes in planning, reviewing documentation, counseling the patient, and discussing with other team members." ASSESSMENT ASSESSMENT Assessment GERD HALLE RICO DO Oct 31, 2025 13:38
[2025-10-31] MEDS ORDERED: ATORVASTATIN 20 MG TAB PO SCH (22:00)
--- NOTE | 2025-10-31 23:11 | DVHPN2 ---
Progress Note - Dictate Date Seen: Oct 31, 2025 Medical Necessity Reason Pt with a Central, PICC or Fol: No Subjective Patient was seen and evaluated in follow up. Patient reports feeling better today. Patient is cardiac cleared for discharge. Telemetry reviewed. vital signs Vital Sign Date Time Temp Pulse Resp B/P (MAP) Pulse Ox O2 Delivery O2 Flow Rate FiO2 10/31/25 09:00 98.2 60 12 107/65 (79) 98 98.2 10/31/25 08:00 Room Air* 0 21 medications Current Medications Medications Dose Ordered Sig/Silvia Route Start Time Stop Time Status Last Admin Dose Admin Ondansetron HCl 4 mg Q4HPRN PRN IV 10/30/25 22:30 Morphine Sulfate 2 mg Q4HPRN PRN IV 10/30/25 22:30 Aspirin 81 mg DAILY PO 10/31/25 10:00 10/31/25 09:36 81 MG Atorvastatin Calcium 40 mg HS PO 10/31/25 22:00 Nitroglycerin 0.4 mg Q5MINP PRN SL 10/31/25 00:15 Enoxaparin Sodium 60 mg Q12HR SC 10/30/25 00:21 10/31/25 09:36 60 MG Pantoprazole Sodium 40 mg DAILY@0600 PO 10/31/25 06:00 10/31/25 06:18 40 MG Ceftriaxone Sodium 50 ml @ 100 mls/hr DAILY@09 IV 10/31/25 09:00 objective GENERAL: Alert and oriented x 3. No acute distress. EYES: PERRL, EOMI. Anicteric. HENT: Moist mucous membranes. LUNGS: Clear to auscultation bilaterally. CARDIOVASCULAR: Regular rate and rhythm. ABDOMEN: Soft, non-tender and non-distended. EXTREMITIES: No edema. NEUROLOGIC: No focal neurological deficits. SKIN: Warm, dry. laboratory and microbiology Laboratory Tests 10/31/25 03:44 Test 10/31/25 03:44 Range/Units Serum Glucose 85 74-106 mg/dL Problem List Elevated troponin, likely non specific. LUQ pain. UTI. Assessment/Plan Continued all current supportive medical care. Aspirin, Lipitor. IV antibiotics as ordered. DVT and GI prophylactics. Nitro SL. Additional plan as per the hospital course. Plan discussed with: Patient GRIS TERRY MD Oct 31, 2025 13:06
== END 2025-10-31 14:36 | disposition home or self-care (01) | DRG 243 ==
LOC: EDBD 19:45 → ER 19:45 → OVERFLOW 10-31 00:07
PROVIDERS: ADMIT Hospitalist; ATTEND Hospitalist
DX: K21.9 Gastro-esophageal reflux disease without esophagitis (principal); I21.A1 Myocardial infarction type 2; C34.90 Malignant neoplasm of unspecified part of unspecified bronchus or lung; N39.0 Urinary tract infection, site not specified; Z79.01 Long term (current) use of anticoagulants; I48.91 Unspecified atrial fibrillation; Z79.899 Other long term (current) drug therapy; Z85.118 Personal history of other malignant neoplasm of bronchus and lung; Z90.2 Acquired absence of lung [part of]; Z92.21 Personal history of antineoplastic chemotherapy; Z87.442 Personal history of urinary calculi; I49.5 Sick sinus syndrome
CPT/HCPCS: 36415; 71045; 80048; 81001; 84484; 85025; 87086; 93005; 99291; G0378